=== PATIENT | female | born 1940 | race Caucasian/White ===

== ENCOUNTER 2020-11-28 09:05 | Outpatient (REF) | payer MEDICARE, MEDICAID, SELFPAY ==
[2020-11-28 11:47] LABS: Hematocrit 41.9 % (37-47); Hemoglobin 13.3 g/dl (12.0-16.0)
[2020-11-28 11:48] LABS: Anion Gap 12 (12-20); Blood Urea Nitrogen 16 mg/dL (9-16); Calcium 8.3 mg/dL (8.4-10.2); Carbon Dioxide 27 mmol/L (22-29); Chloride 106 mmol/L (96-108); Cholesterol 154 mg/dL; Estimated Glomerular Filt Rate > 60; Glucose Fasting 89 mg/dL (60-99); HDL Cholesterol 50 mg/dL; LDL Cholesterol Calculated 82 mg/dl; Potassium 4.3 mmol/l (3.3-5.1); Sodium 141 mmol/L (135-145); Triglycerides 113 mg/dL
[2020-11-28 12:10] LABS: TSH reflex Free T4 0.97 mIU/mL (0.32-4.0)
== END 2020-11-28 09:06 | disposition home or self-care (01) ==
LOC: HO.HMGCLDS 09:05
PROVIDERS: PCP Internal Medicine; Visit Provider Internal Medicine
DX: I48.92 Unspecified atrial flutter (principal); E78.9 Disorder of lipoprotein metabolism, unspecified; E03.8 Other specified hypothyroidism
CPT/HCPCS: 36415; 80048; 80061; 84443; 85014; 85018

== ENCOUNTER 2021-05-16 08:21 | Outpatient (REF) | payer MEDICARE, MEDICAID, SELFPAY ==
--- NOTE | ~2021-05-16 | MM_ITS ---
EXAMINATION: MM SCREENING DIGITAL BREAST TOMOSYNTHESIS, BILATERAL CLINICAL INFORMATION: Screening. Asymptomatic. The lifetime risk of breast cancer based on the Tyrer-Cuzick Model is 2%. COMPARISON: Mammography: 05/10/2020, 02/11/2019, 01/20/2017 TECHNIQUE: Digital breast tomosynthesis is performed in both the craniocaudal and mediolateral oblique views along with computer-aided detection (CAD). Synthesized 2D images are generated from the tomosynthesis. Additional exaggerated left CC view is provided. FINDINGS: There are scattered areas of fibroglandular density (ACR BI-RADS breast composition Category b). Breast tissue composition borders on heterogeneously dense. There is fine fibronodular parenchymal pattern similar to prior studies. No developing density or interval mass or architectural abnormality. No abnormal calcifications. The axilla and skin contours are unremarkable. MM/MM tomosynthesis screening BI IMPRESSION: No mammographic evidence of malignancy. ASSESSMENT: BI-RADS 1: Negative RECOMMENDATION: Routine annual mammography screening. This patient's information was entered into a reminder system with a target due date for their next mammogram.
== END 2021-05-16 08:22 | disposition home or self-care (01) ==
LOC: HO.MAMMO 08:21
PROVIDERS: PCP Internal Medicine; Visit Provider Internal Medicine
DX: Z12.31 Encounter for screening mammogram for malignant neoplasm of breast (principal)
CPT/HCPCS: 77063; 77067

== ENCOUNTER 2021-06-10 08:00 | Outpatient (REF) | payer MEDICARE, SELFPAY ==
[2021-06-10 12:12] LABS: Alanine Aminotransferase 11 U/L (0-31); Albumin Level 3.7 g/dL (3.5-5.0); Alkaline Phosphatase 99 U/L (39-117); Anion Gap 8 (12-20); Aspartate Amino Transferase 19 U/L (5-31); Bilirubin Total 0.5 mg/dL (0.0-1.0); Blood Urea Nitrogen 17 mg/dL (9-16); Calcium 8.8 mg/dL (8.4-10.2); Carbon Dioxide 28 mmol/L (22-29); Chloride 109 mmol/L (96-108); Cholesterol 149 mg/dL; Estimated Glomerular Filt Rate > 60; Glucose Fasting 94 mg/dL (60-99); HDL Cholesterol 53 mg/dL; LDL Cholesterol Calculated 81 mg/dl; Potassium 4.4 mmol/L (3.3-5.1); Sodium 141 mmol/L (135-145); Total Protein 6.8 g/dL (6.5-8.0); Triglycerides 77 mg/dL
[2021-06-10 12:16] LABS: TSH reflex Free T4 0.75 uIU/mL (0.32-4.0)
== END 2021-06-10 08:01 | disposition home or self-care (01) ==
LOC: HO.HMGCLDS 08:00
PROVIDERS: PCP Internal Medicine; Visit Provider Internal Medicine
DX: Z00.01 Encounter for general adult medical examination with abnormal findings (principal); E78.9 Disorder of lipoprotein metabolism, unspecified; E03.8 Other specified hypothyroidism
CPT/HCPCS: 36415; 80053; 80061; 84443

== ENCOUNTER 2021-12-10 08:36 | Outpatient (REF) | payer MEDICARE, SELFPAY ==
[2021-12-10 11:26] LABS: MANUAL DIFF FLAG NO
[2021-12-10 11:31] LABS: Basophils Percent Auto 0.3 % (0-2); Eosinophils Absolute Auto 0.2 X10*3/uL (0.0-0.4); Eosinophils Percent Auto 2.8 % (0-4); Hematocrit 41.3 % (37.0-47.0); Imm Gran Abs Auto 0.02 X10*3/uL (0.00-0.03); Imm Gran Pct Auto 0.3 % (0.0-0.4); Lymphocytes Absolute Auto 1.5 X10*3/uL (1.2-4.9); Lymphocytes Percent Auto 24.5 % (20-40); Mean Corpuscular HGB Conc 31.5 g/dl (31.0-35.0); Mean Corpuscular Hemoglobin 30.7 pg (27.0-33.0); Mean Corpuscular Volume 97.6 fL (80.0-98.0); Mean Platelet Volume 10.8 fL (9.4-12.3); Monocytes Absolute Auto 0.7 X10*3/uL (0.1-1.2); Monocytes Percent Auto 10.9 % (2-11); Neutrophils Absolute Auto 3.7 x10*3/uL (2.0-8.3); Neutrophils Percent Auto 61.2 % (45-73); Platelet Count 173 X10*3/uL (160-400); Red Blood Count 4.23 X10*6/uL (4.20-5.50); Red Cell Distribution Width 13.2 % (11.0-16.0)
[2021-12-10 12:15] LABS: TSH reflex Free T4 1.07 uIU/mL (0.32-4.0)
[2021-12-10 12:18] LABS: Alanine Aminotransferase 11 U/L (0-31); Albumin Level 3.7 g/dL (3.5-5.0); Alkaline Phosphatase 101 U/L (39-117); Anion Gap 8 (12-20); Aspartate Amino Transferase 17 U/L (5-31); Bilirubin Total 0.6 mg/dL (0.0-1.0); Blood Urea Nitrogen 18 mg/dL (9-16); Calcium 8.9 mg/dL (8.4-10.2); Carbon Dioxide 30 mmol/L (22-29); Chloride 108 mmol/L (96-108); Estimated Glomerular Filt Rate 58; Glucose Random 92 mg/dL (60-115); Potassium 4.1 mmol/L (3.3-5.1); Sodium 142 mmol/L (135-145); Total Protein 7.1 g/dL (6.5-8.0)
[2021-12-10 12:36] LABS: Vitamin B12 362 pg/mL (200-900)
== END 2021-12-10 08:37 | disposition home or self-care (01) ==
LOC: HO.HMGCLDS 08:36
PROVIDERS: PCP Internal Medicine; Visit Provider Internal Medicine
DX: E03.8 Other specified hypothyroidism (principal); I49.5 Sick sinus syndrome; E78.9 Disorder of lipoprotein metabolism, unspecified; J44.9 Chronic obstructive pulmonary disease, unspecified; E66.09 Other obesity due to excess calories
CPT/HCPCS: 36415; 80053; 82607; 84443; 85025

== ENCOUNTER → 2021-12-17 09:53 | Outpatient (BNVA) | payer MEDICARE, SELFPAY | PROVIDERS: PCP Internal Medicine; Referring Provider Internal Medicine; Visit Provider Internal Medicine | DX: I48.92 Unspecified atrial flutter (principal); I31.3 Pericardial effusion (noninflammatory); R60.0 Localized edema | CPT/HCPCS: 93005; 99212 ==

== ENCOUNTER 2022-05-19 11:28 | Outpatient (REF) | payer MEDICARE, SELFPAY ==
--- NOTE | ~2022-05-19 | MM_ITS ---
EXAMINATION: MM SCREENING DIGITAL BREAST TOMOSYNTHESIS, BILATERAL CLINICAL INFORMATION: Screening. Asymptomatic. The lifetime risk of breast cancer based on the Tyrer-Cuzick Model is 2%. COMPARISON: Mammography: 05/16/2021, 05/10/2020, 02/11/2019 TECHNIQUE: Digital breast tomosynthesis is performed in both the craniocaudal and mediolateral oblique views along with computer-aided detection (CAD). Synthesized 2D images are generated from the tomosynthesis. FINDINGS: There are scattered areas of fibroglandular density (ACR BI-RADS breast composition Category b). Breast tissue borders on heterogeneously dense. There is fine fibronodular parenchymal pattern similar to prior exams. There is no significant mass or interval developing density or abnormal calcifications. The axilla and skin contours are unremarkable. No significant changes. MM/MM tomosynthesis screening BI IMPRESSION: No mammographic evidence of malignancy. ASSESSMENT: BI-RADS 1: Negative RECOMMENDATION: Routine annual mammography screening. This patient's information was entered into a reminder system with a target due date for their next mammogram.
== END 2022-05-19 11:29 | disposition home or self-care (01) ==
LOC: HO.MAMMO 11:28
PROVIDERS: Visit Provider Internal Medicine
DX: Z12.31 Encounter for screening mammogram for malignant neoplasm of breast (principal)
CPT/HCPCS: 77063; 77067

== ENCOUNTER 2022-07-29 07:10 | Outpatient (REF) | payer OTHER, SELFPAY ==
[2022-07-29 12:15] LABS: Alanine Aminotransferase 10 U/L (0-31); Albumin Level 3.5 g/dL (3.5-5.0); Alkaline Phosphatase 100 U/L (39-117); Anion Gap 13 (12-20); Aspartate Amino Transferase 15 U/L (5-31); Bilirubin Total 0.2 mg/dL (0.0-1.0); Blood Urea Nitrogen 18 mg/dL (9-16); Calcium 8.3 mg/dL (8.4-10.2); Carbon Dioxide 27 mmol/L (22-29); Chloride 109 mmol/L (96-108); Estimated Glomerular Filt Rate > 60; Glucose Random 101 mg/dL (60-115); Potassium 4.6 mmol/L (3.3-5.1); Sodium 144 mmol/L (135-145); Total Protein 6.7 g/dL (6.5-8.0)
[2022-07-29 12:17] LABS: TSH reflex Free T4 1.59 uIU/mL (0.32-4.0)
== END 2022-07-29 07:11 | disposition home or self-care (01) ==
LOC: HO.HMGCLDS 07:10
PROVIDERS: PCP Internal Medicine; Visit Provider Internal Medicine
DX: I49.5 Sick sinus syndrome (principal); E78.9 Disorder of lipoprotein metabolism, unspecified; E03.8 Other specified hypothyroidism
CPT/HCPCS: 36415; 80053; 84443

== ENCOUNTER → 2023-01-06 12:38 | Outpatient (BNVA) | payer OTHER, SELFPAY | PROVIDERS: PCP Internal Medicine; Referring Provider Internal Medicine; Visit Provider Internal Medicine | DX: I48.92 Unspecified atrial flutter (principal); R60.0 Localized edema | CPT/HCPCS: 93005; 99212 ==

== ENCOUNTER 2023-01-28 07:43 | Outpatient (REF) | payer OTHER, SELFPAY ==
[2023-01-28 11:53] LABS: Alanine Aminotransferase 8 U/L (0-31); Albumin Level 3.5 g/dL (3.5-5.0); Alkaline Phosphatase 101 U/L (39-117); Anion Gap 13 (12-20); Aspartate Amino Transferase 14 U/L (5-31); Bilirubin Total 0.6 mg/dL (0.0-1.0); Blood Urea Nitrogen 19 mg/dL (9-16); Calcium 8.7 mg/dL (8.4-10.2); Carbon Dioxide 25 mmol/L (22-29); Chloride 110 mmol/L (96-108); Cholesterol 156 mg/dL; Estimated Glomerular Filt Rate 60; Glucose Fasting 92 mg/dL (60-99); HDL Cholesterol 48 mg/dL; LDL Cholesterol Calculated 90 mg/dl; Potassium 4.9 mmol/L (3.3-5.1); Sodium 143 mmol/L (135-145); Total Protein 6.5 g/dL (6.5-8.0); Triglycerides 90 mg/dL
== END 2023-01-28 07:44 | disposition home or self-care (01) ==
LOC: HO.HMGCLDS 07:43
PROVIDERS: PCP Internal Medicine; Visit Provider Internal Medicine
DX: E03.8 Other specified hypothyroidism (principal); E78.9 Disorder of lipoprotein metabolism, unspecified; I49.5 Sick sinus syndrome
CPT/HCPCS: 36415; 80053; 80061; 84443

== ENCOUNTER 2023-05-27 13:30 | Outpatient (REF) | payer OTHER, SELFPAY ==
--- NOTE | ~2023-05-27 | MM_ITS ---
EXAMINATION: MM SCREENING DIGITAL BREAST TOMOSYNTHESIS, BILATERAL CLINICAL INFORMATION: Screening. Asymptomatic. The lifetime risk of breast cancer based on the Tyrer-Cuzick Model is 1.2%. COMPARISON: Mammography: This study is compared with prior exams dating back to 2019. TECHNIQUE: Digital breast tomosynthesis is performed in both the craniocaudal and mediolateral oblique views along with computer-aided detection (CAD). Synthesized 2D images are generated from the tomosynthesis. FINDINGS: There are scattered areas of fibroglandular density (ACR BI-RADS breast composition Category b). There are no significant masses, abnormal calcifications, or other abnormalities. MM/MM tomosynthesis screening BI IMPRESSION: No mammographic evidence of malignancy. ASSESSMENT: BI-RADS BI-RADS 1 - Negative RECOMMENDATION: Routine annual mammography screening. 1 year F/U This examination should not preclude the clinical evaluation of a suspicious palpable abnormality. This patient's information was entered into a reminder system with a target due date for their next mammogram.
== END 2023-05-27 13:31 | disposition home or self-care (01) ==
LOC: HO.MAMMO 13:30
PROVIDERS: PCP Internal Medicine; Visit Provider Internal Medicine
DX: Z12.31 Encounter for screening mammogram for malignant neoplasm of breast (principal)
CPT/HCPCS: 77063; 77067

== ENCOUNTER → 2023-05-27 13:45 | Outpatient (BNV) | payer OTHER, SELFPAY | PROVIDERS: PCP Internal Medicine; Visit Provider Radiology Diagnostic Radiology | DX: Z12.31 Encounter for screening mammogram for malignant neoplasm of breast (principal) | CPT/HCPCS: 77063; 77067 ==

== ENCOUNTER 2023-10-30 07:58 | Outpatient (REF) | payer OTHER, SELFPAY ==
[2023-10-30 12:22] LABS: MANUAL DIFF FLAG NO
[2023-10-30 12:32] LABS: Basophils Percent Auto 0.5 % (0-2); Eosinophils Absolute Auto 0.2 X10*3/uL (0.0-0.4); Eosinophils Percent Auto 3.5 % (0-4); Hematocrit 28.3 % (37.0-47.0); Imm Gran Abs Auto 0.02 X10*3/uL (0.00-0.03); Imm Gran Pct Auto 0.3 % (0.0-0.4); Lymphocytes Absolute Auto 1.5 X10*3/uL (1.2-4.9); Lymphocytes Percent Auto 23.4 % (20-40); Mean Corpuscular HGB Conc 28.3 g/dl (31.0-35.0); Mean Corpuscular Hemoglobin 22.7 pg (27.0-33.0); Mean Corpuscular Volume 80.4 fL (80.0-98.0); Mean Platelet Volume 10.8 fL (9.4-12.3); Monocytes Absolute Auto 0.7 X10*3/uL (0.1-1.2); Neutrophils Absolute Auto 3.8 x10*3/uL (2.0-8.3); Neutrophils Percent Auto 61.3 % (45-73); Platelet Count 213 X10*3/uL (160-400); Red Blood Count 3.52 X10*6/uL (4.20-5.50); Red Cell Distribution Width 20.6 % (11.0-16.0); White Blood Count 6.2 X10*3/uL (4.8-10.8)
[2023-10-30 14:58] LABS: Alanine Aminotransferase 12 U/L (0-31); Albumin Level 3.5 g/dL (3.5-5.0); Alkaline Phosphatase 94 U/L (39-117); Anion Gap 13 (12-20); Aspartate Amino Transferase 19 U/L (5-31); Bilirubin Total 0.3 mg/dL (0.0-1.0); Blood Urea Nitrogen 19 mg/dL (9-16); Calcium 8.9 mg/dL (8.4-10.2); Carbon Dioxide 24 mmol/L (22-29); Chloride 112 mmol/L (96-108); Cholesterol 150 mg/dL (<200); Estimated Glomerular Filt Rate > 60; Glucose Fasting 99 mg/dL (60-99); HDL Cholesterol 52 mg/dL (>40); LDL Cholesterol Calculated 83 mg/dL (<100); Potassium 4.6 mmol/L (3.3-5.1); Sodium 144 mmol/L (135-145); TSH reflex Free T4 1.53 uIU/mL (0.32-4.0); Total Protein 7.2 g/dL (6.5-8.0); Triglycerides 79 mg/dL (<150)
[2023-11-02 18:39] LABS: Lyme Abs Screen <0.90 index
== END 2023-10-30 07:59 | disposition home or self-care (01) ==
LOC: HO.HMGCLDS 07:58
PROVIDERS: PCP Internal Medicine; Visit Provider Internal Medicine
DX: E03.8 Other specified hypothyroidism (principal); E78.9 Disorder of lipoprotein metabolism, unspecified; I49.5 Sick sinus syndrome; E66.09 Other obesity due to excess calories; T14.8XXA Other injury of unspecified body region, initial encounter; W57.XXXA Bitten or stung by nonvenomous insect and other nonvenomous arthropods, initial encounter; Y93.9 Activity, unspecified; Y92.9 Unspecified place or not applicable; Y99.9 Unspecified external cause status
CPT/HCPCS: 36415; 80053; 80061; 84443; 85025; 86617; 86618

== ENCOUNTER 2023-11-03 08:33 | Outpatient (AMB) | payer OTHER, SELFPAY ==
[2023-11-03 08:36] VITALS: BP 128/60; PULSE 65; O2SAT 100; BMI 30.3
--- NOTE | 2023-11-03 08:36 | MHC.PC.OV ---
Vital Signs 11/03/23 08:36 Height 5 ft 6 in Weight 188 lb BMI 30.3 BP 128/60 Blood Pressure Location Rt brachial Position Sitting Pulse 65 Pulse Source Pulse Oximeter Pulse Oximetry (%) 100 Oxygen Delivery Method Room Air Intake Visit Reasons: 6m follow up Allergies latex [LATEX] Allergy (Unknown, Verified 11/03/23 08:39) UNKNOWN Dajhbst-EEI-WsC Reductase Inhibitor [LQPSMKO-YMZ-VEF REDUCTASE INHIBITOR] Allergy (Unknown, Verified 11/03/23 08:39) ? liver issue Sulfa (Sulfonamide Antibiotics) [SULFA (SULFONAMIDE ANTIBIOTICS)] Allergy (Unknown, Verified 11/03/23 08:39) yeast infections, yeast infection Adhesive bandages Allergy (Unknown, Uncoded 11/03/23 08:39) rash to site Medication List - Last Reconciled 11/03/23 by Melonie Lott MD albuterol sulfate 90 mcg/actuation 2 puffs inhalation Q6H PRN metoprolol tartrate 50 mg PO BID rivaroxaban (Xarelto) 20 mg PO QPM rosuvastatin 10 mg PO DAILY 90 days Synthroid (levothyroxine) 75 mcg PO DAILY 90 days NS Tobacco use date assessed: 11/03/23 Fall risk assessment: No Falls in past year Last assessed Fall Risk: 11/03/23 Dental Screening Dental Screen Date: 11/03/23 Did you have a dental visit in the last 12 months?: Yes Did you have a dental problem in the last 6 months where you did not have access to dental care?: Yes Was dental information given to patient?: Patient has dentist HPI 6m follow up HPI Details Patient is 83-year-old female came in today for her six-month follow-up appointment Patient had labs done recently I see that her hemoglobin has dropped to 8.0 it was 13 last year in November. It seems like an iron deficiency anemia. Patient admits that she gets constipated often at times she also see streak of fresh blood in her stool Colonoscopy was approximately [address] Brewster Patient says that she was told that she does not need anymore colonoscopies. But she will call him to book appointment for evaluation I have placed a referral for to see Hematology as well Meanwhile patient is to start iron supplement along with laxative. Labs needs to be repeated again in 2 weeks. She does complain of feeling fatigued and tired If she exerts herself then she also get shortness of breath. Her lungs are clear on auscultation heart is regular She does have mild chronic edema left ankle which started after the knee surgery. BMI is also elevated patient is struggling with weight PFSH Medical History Pericardial effusion Surgical History History of parathyroid surgery Mammogram normal History of total knee replacement (TKR) History of basal cell carcinoma excision History of colonoscopy Parathyroid adenoma Family History Father Stroke Mother CHF (congestive heart failure) Stroke Brother Colon cancer Brother Brain tumor Social History Housing: Apartment Patient Tobacco Use Status: Never used Tobacco e-Cigarette/Vaping Use: Never Used Current occupational status: retired Cognitive needs: No Hearing needs: No Vision needs: Yes Questionnaire Thrive Questionnaire Date Thrive assessed: 05/06/23 SUSAN-7 AMB Questionnaire SUSAN-7 Date SUSAN - 7 assessed: 05/06/23 Source: Developed by Drs. Gopi Castillo, Susana Calero, Rigoberto Jones and colleagues, with an educational gini from [employer]. Review of Systems Const Denies chills and Denies fever(s) ENT Denies epistaxis and Denies nasal discharge Card Denies chest pain Resp Denies chest congestion, Denies cough and Denies hemoptysis GI Denies diarrhea and Denies nausea Skin/Breast Denies rash Neuro Reports no additional complaints Psych Reports no additional complaints Endo Reports no additional complaints Physical exam (Primary Care) Vital Signs: Last Vital Signs Pulse 65 11/03/23 08:36 BP 128/60 11/03/23 08:36 Pulse Ox 100 11/03/23 08:36 Oxygen Delivery Method Room Air 11/03/23 08:36 BMI result Body Mass Index 30.3 Tobacco/Smoking Status: Tobacco use Status Tobacco use date assessed 11/03/23 11/03/23 08:40 Patient Tobacco Use Status Never used Tobacco 11/03/23 08:38 e-Cigarette/Vaping Use Never Used 11/03/23 08:38 Thrive Assessment: Date of Thrive Assessment Date Thrive assessed 05/06/23 11/03/23 08:38 Const General: cooperative, comfortable and no acute distress Orientation/consciousness: patient oriented x3 HENMT Head: Yes normocephalic Eyes General: appearance normal, both eyes and all related structures Neck Neck: Yes supple Resp Effort & Inspection: normal respiratory effort, no cough and no stridor Cardio Rhythm: regular rhythm Heart sounds: S1 normal heart sound present and S2 normal heart sound present Skin General skin exam: turgor normal Neuro General: patient oriented x3, tone normal and moves all extremities Results Reviewed Results Reviewed: Laboratory Tests 03/21/20 06/10/21 06/10/21 11:52 08:06 08:06 WBC RBC Hgb Hct Sodium Potassium Chloride Carbon Dioxide Bicarbonate 22 BUN Creatinine Estimated GFR Fasting Glucose 94 AST ALT LDL Cholesterol, Calc 81 Vitamin B12 TSH 12/10/21 12/10/21 12/10/21 08:45 08:45 08:45 WBC 6.0 RBC 4.23 Hgb 13.0 Hct 41.3 Sodium 142 Potassium 4.1 Chloride 108 Carbon Dioxide 30 H Bicarbonate BUN 18 H Creatinine 0.93 Estimated GFR Fasting Glucose AST 17 ALT 11 LDL Cholesterol, Calc Vitamin B12 TSH 12/10/21 10/30/23 08:45 08:03 WBC RBC 3.52 L Hgb 8.0 L D Hct 28.3 L D Sodium Potassium Chloride Carbon Dioxide Bicarbonate BUN Creatinine Estimated GFR 58 Fasting Glucose AST ALT LDL Cholesterol, Calc Vitamin B12 362 TSH 1.07 Assessment and Plan Assessment & Plan (1) Anemia: Code(s): D64.9 - Anemia, unspecified Qualifiers: Anemia type: iron deficiency Iron deficiency anemia type: chronic blood loss Qualified Code(s): D50.0 - Iron deficiency anemia secondary to blood loss (chronic) (2) Leg edema: Code(s): R60.0 - Localized edema (3) COPD, mild: Code(s): J44.9 - Chronic obstructive pulmonary disease, unspecified (4) Angelo-tachy syndrome: Code(s): I49.5 - Sick sinus syndrome (5) Lipid disorder: Code(s): E78.9 - Disorder of lipoprotein metabolism, unspecified (6) Other specified acquired hypothyroidism: Code(s): E03.8 - Other specified hypothyroidism (7) Obesity due to excess calories: Code(s): E66.09 - Other obesity due to excess calories Qualifiers: Obesity classification: adult class 1 (BMI 30 - 34.9) Serious obesity comorbidity presence: with serious comorbidity Body mass index: BMI 30.0-30.9 Qualified Code(s): E66.09 - Other obesity due to excess calories; Z68.30 - Body mass index [BMI] 30.0-30.9, adult Plan Patient is 83-year-old female came in today for her six-month follow-up appointment Patient had labs done recently I see that her hemoglobin has dropped to 8.0 it was 13 last year in November. It seems like an iron deficiency anemia. Patient admits that she gets constipated often at times she also see streak of fresh blood in her stool Colonoscopy was approximately [address] Brewster Patient says that she was told that she does not need anymore colonoscopies. But she will call him to book appointment for evaluation I have placed a referral for to see Hematology as well Meanwhile patient is to start iron supplement along with laxative. Labs needs to be repeated again in 2 weeks. She does complain of feeling fatigued and tired If she exerts herself then she also get shortness of breath. Her lungs are clear on auscultation heart is regular She does have mild chronic edema left ankle which started after the knee surgery. BMI is also elevated patient is struggling with weight History of angelo-tachy syndrome, patient is established with Cardiology Lipid disorder: Continue statin She does mild COPD which is stable at this time Orders: Orders Hemoglobin Today D64.9 - Anemia, unspecified Vitamin B12 Today D64.9 - Anemia, unspecified Folate Today D64.9 - Anemia, unspecified Ferritin Today D64.9 - Anemia, unspecified Hematocrit Today D64.9 - Anemia, unspecified IRON PROFILE Today D64.9 - Anemia, unspecified Medications: New sennosides-docusate sodium 8.6-50 mg (Senokot-S) 1 tab-cap PO BEDTIME 90 days 90 tabs 0RF constipation K59.03 - Drug induced constipation, T40.2X5A - Adverse effect of other opioids, initial encounter ferrous sulfate 324 mg PO BID 90 days 180 tabs 0RF Coding Level of Care Code Est Pt Level 4 (86053) Diagnoses Iron deficiency anemia due to chronic blood loss D50.0 Anemia type: iron deficiency Iron deficiency anemia type: chronic blood loss Leg edema R60.0 COPD, mild J44.9 Angelo-tachy syndrome I49.5 Lipid disorder E78.9 Other specified acquired hypothyroidism E03.8 Class 1 obesity due to excess calories with serious comorbidity and body mass index (BMI) of 30.0 to 30.9 in adult E66.09; Z68.30 Obesity classification: adult class 1 (BMI 30 - 34.9) Serious obesity comorbidity presence: with serious comorbidity Body mass index: BMI 30.0-30.9
== END 2023-11-03 12:28 | disposition home or self-care (01) ==
PROVIDERS: PCP Internal Medicine; Visit Provider Internal Medicine
DX: D50.0 Iron deficiency anemia secondary to blood loss (chronic) (principal); R60.0 Localized edema; J44.9 Chronic obstructive pulmonary disease, unspecified; I49.5 Sick sinus syndrome; E78.9 Disorder of lipoprotein metabolism, unspecified; E03.8 Other specified hypothyroidism; E66.09 Other obesity due to excess calories; Z68.30 Body mass index [BMI] 30.0-30.9, adult
CPT/HCPCS: 99214

== ENCOUNTER 2023-12-03 07:58 | Outpatient (REF) | payer OTHER, SELFPAY ==
[2023-12-03 11:34] LABS: MANUAL DIFF FLAG NO
[2023-12-03 11:51] LABS: Basophils Percent Auto 0.5 % (0-2); Eosinophils Absolute Auto 0.2 X10*3/uL (0.0-0.4); Eosinophils Percent Auto 3.6 % (0-4); Hematocrit 36.7 % (37.0-47.0); Hemoglobin 10.8 g/dl (12.0-16.0); Imm Gran Abs Auto 0.03 X10*3/uL (0.00-0.03); Imm Gran Pct Auto 0.5 % (0.0-0.4); Lymphocytes Absolute Auto 1.2 X10*3/uL (1.2-4.9); Lymphocytes Percent Auto 18.8 % (20-40); Mean Corpuscular HGB Conc 29.4 g/dl (31.0-35.0); Mean Corpuscular Hemoglobin 25.3 pg (27.0-33.0); Mean Corpuscular Volume 85.9 fL (80.0-98.0); Mean Platelet Volume 10.5 fL (9.4-12.3); Monocytes Absolute Auto 0.8 X10*3/uL (0.1-1.2); Monocytes Percent Auto 11.9 % (2-11); Neutrophils Absolute Auto 4.3 x10*3/uL (2.0-8.3); Neutrophils Percent Auto 64.7 % (45-73); Platelet Count 214 X10*3/uL (160-400); Red Blood Count 4.27 X10*6/uL (4.20-5.50); Red Cell Distribution Width 25.8 % (11.0-16.0); White Blood Count 6.6 X10*3/uL (4.8-10.8)
[2023-12-03 12:20] LABS: Alanine Aminotransferase 12 U/L (0-31); Albumin Level 3.7 g/dL (3.5-5.0); Alkaline Phosphatase 85 U/L (39-117); Anion Gap 9 (12-20); Aspartate Amino Transferase 17 U/L (5-31); Bilirubin Total 0.4 mg/dL (0.0-1.0); Blood Urea Nitrogen 14 mg/dL (9-16); Calcium 9.2 mg/dL (8.4-10.2); Carbon Dioxide 27 mmol/L (22-29); Chloride 109 mmol/L (96-108); Cholesterol 150 mg/dL (<200); Estimated Glomerular Filt Rate > 60; Ferritin 28 ng/mL (10-250); Glucose Fasting 92 mg/dL (60-99); HDL Cholesterol 56 mg/dL (>40); Iron 76 mcg/dL (30-160); LDL Cholesterol Calculated 75 mg/dL (<100); Percent Iron Saturation 25 % (15-50); Potassium 4.3 mmol/L (3.3-5.1); Sodium 141 mmol/L (135-145); TSH reflex Free T4 1.21 uIU/mL (0.32-4.0); Total Iron Binding Capacity 299 mcg/dL (228-428); Total Protein 7.4 g/dL (6.5-8.0); Triglycerides 95 mg/dL (<150); Unsaturated Iron Binding 223 ug/dL
[2023-12-03 12:29] LABS: Folate 11.1 ng/mL (> or = 4.0); Vitamin B12 324 pg/mL (200-900)
== END 2023-12-03 07:59 | disposition home or self-care (01) ==
LOC: HO.HMGCLDS 07:58
PROVIDERS: PCP Internal Medicine; Visit Provider Internal Medicine
DX: Z00.01 Encounter for general adult medical examination with abnormal findings (principal); E03.8 Other specified hypothyroidism; E78.9 Disorder of lipoprotein metabolism, unspecified; I49.5 Sick sinus syndrome; E66.09 Other obesity due to excess calories; D64.9 Anemia, unspecified
CPT/HCPCS: 36415; 80053; 80061; 82607; 82728; 82746; 83540; 84443; 85025

== ENCOUNTER 2023-12-17 07:55 | Outpatient (AMB) | payer OTHER, SELFPAY ==
--- NOTE | 2023-12-17 08:09 | A.OFFPC_ITS ---
Intake Visit Reasons: Discuss bloodwork~[phone] Allergies latex [LATEX] Allergy (Unknown, Verified 12/17/23 08:10) UNKNOWN Lhxpbvo-GZW-XkR Reductase Inhibitor [SYMYEHV-HNL-SWM REDUCTASE INHIBITOR] Allergy (Unknown, Verified 12/17/23 08:10) ? liver issue Sulfa (Sulfonamide Antibiotics) [SULFA (SULFONAMIDE ANTIBIOTICS)] Allergy (Unknown, Verified 12/17/23 08:10) yeast infections, yeast infection Adhesive bandages Allergy (Unknown, Uncoded 12/17/23 08:10) rash to site Medication List - Last Reconciled 12/17/23 by Melonie Lott MD ferrous sulfate 324 mg PO BID 90 days metoprolol tartrate 50 mg PO BID 90 days rivaroxaban (Xarelto) 20 mg PO QPM rosuvastatin 10 mg PO DAILY 90 days sennosides-docusate sodium 8.6-50 mg (Senokot-S) 1 tab-cap PO BEDTIME 90 days Synthroid (levothyroxine) 75 mcg PO DAILY 90 days NS Tobacco use date assessed: 12/17/23 Fall risk assessment: No Falls in past year Last assessed Fall Risk: 12/17/23 Dental Screening Dental Screen Date: 12/17/23 Did you have a dental visit in the last 12 months?: Yes Did you have a dental problem in the last 6 months where you did not have access to dental care?: Yes Was dental information given to patient?: Patient has dentist HPI Discuss bloodwork~[phone] HPI Details This is a telemedicine conference to go over patient's labs Patient had labs done it of October that was last month and her hemoglobin came back at 8.0 Her baseline hemoglobin is 13 or [address] referral for her to see Hematology in started her on iron supplement 2 times a day We repeated labs again her hemoglobin has improved to 10.8 Patient is asking if she still need to see the Hematology She has no active bleeding from anywhere At this time if patient is not interested in seeing him a tolerating we can hold that consultation She is to continue with iron supplement 2 times a day and repeat labs again in 2 months and then we will decide. For now she is tolerating iron without any side effects PFSH Medical History Pericardial effusion Surgical History History of parathyroid surgery Mammogram normal History of total knee replacement (TKR) History of basal cell carcinoma excision History of colonoscopy Parathyroid adenoma Family History Father Stroke Mother CHF (congestive heart failure) Stroke Brother Colon cancer Brother Brain tumor Social History Housing: Apartment Patient Tobacco Use Status: Never used Tobacco e-Cigarette/Vaping Use: Never Used Current occupational status: retired Cognitive needs: No Hearing needs: Yes Vision needs: Yes Questionnaire PHQ-9 Over the last 2 weeks, how often have you been bothered by any of the following problems? 1. Little interest or pleasure in doing things: not at all 2. Feeling down, depressed, or hopeless: not at all 3. Trouble falling or staying asleep, or sleeping too much: not at all 4. Feeling tired or having little energy: not at all 5. Poor appetite or overeating: not at all 6. Feeling bad about yourself - or that you are a failure or have let yourself or your family down: not at all 7. Trouble concentrating on things, such as reading the newspaper or watching television: not at all 8. Moving or speaking so slowly that other people could have noticed. Or the opposite - being so fidgety or restless that you have been moving around a lot more than usual: not at all 9. Thoughts that you would be better off or of hurting yourself in some way: not at all Total score: 0 Depression Screening Interpretation: Negative Depression Screening Done: Yes 56947 - PHQ-9 Billing: Yes Source: Developed by Drs. Gopi Castillo, Susana Calero, Rigoberto Jones and colleagues, with an educational gini from [employer]. Thrive Questionnaire Date Thrive assessed: 12/17/23 I am a: Patient What is your living situation today?: I have a steady place to live Within the past 12 months, did the food you bought not last and you didn't have the money to get more?: Never true Within the past 12 months, did you worry whether your food would run out before you got money to buy more?: Never true Do you have trouble paying for medicines?: No Do you have trouble getting transportation to medical appointments?: No Do you have trouble paying your heating and electricity bill?: No Do you have trouble taking care of your child, family member or friend?: No Do you have trouble with day-to-day activities such as bathing, preparing meals, shopping, managing finances, etc.?: No Are you currently unemployed and looking for a job?: No Are you interested in more education?: No Please select the resources that you would like help with: None Currently or been in a relationship where the following occur: no concerns reported THRIVE Score: 0 AUDIT C Alcohol Use Questionnaire (AUDIT-C) 1. How often do you have a drink containing alcohol?: Never Total Score: 0 Score Reviewed/Action Taken: No SUSAN-7 AMB Questionnaire SUSAN-7 Date SUSAN - 7 assessed: 12/17/23 Feeling nervous, anxious, or on edge: 1 = Several days Not being able to stop or control worryin = Several days Worrying too much about different things: 0 = Not at all Trouble relaxin = Not at all Being so restless that it is hard to sit still: 0 = Not at all Becoming easily annoyed or irritable: 0 = Not at all Feeling afraid as if something awful might happen: 0 = Not at all Total SUSAN-7 score (0-4 normal; 5-9 mild; 10-14 moderate; 15-21 severe): 2 Source: Developed by Drs. Gopi Castillo, Susana Calero, Rigoberto Jones and colleagues, with an educational gini from [employer]. SUSAN-7 Assessment Billing SUSAN-7 Assessment Tool: SUSAN-7 Assessment 71850 Review of Systems Const Denies chills and Denies fever(s) ENT Denies epistaxis and Denies nasal discharge Card Denies chest pain Resp Denies chest congestion, Denies cough and Denies hemoptysis GI Denies diarrhea and Denies nausea Skin/Breast Denies rash Neuro Reports no additional complaints Psych Reports no additional complaints Endo Reports no additional complaints Physical exam (Primary Care) Tobacco/Smoking Status: Tobacco use Status Tobacco use date assessed 12/17/23 12/17/23 08:15 Patient Tobacco Use Status Never used Tobacco 12/17/23 08:15 e-Cigarette/Vaping Use Never Used 12/17/23 08:15 PHQ-9: PHQ-9 Score PHQ-9: Total score 0 12/17/23 08:15 Depression Screening Interpretation: Negative Thrive Assessment: Date of Thrive Assessment Date Thrive assessed 12/17/23 12/17/23 08:15 Currently or been in a relationship where the following occur: no concerns reported Telehealth Telehealth Location of provider rendering services: practice address Location of patient: address on file Patient Identification confirmed using: Name, : Yes Telehealth method: voice only Patient verbally consented to treatment: Yes Patient verbally consented to billing insurance company: Yes Patient informed of any privacy concerns related to visit: Yes Minutes spent on Phone/Video with Pt.: 14 Assessment and Plan Assessment & Plan (1) Iron deficiency anemia: Code(s): D50.9 - Iron deficiency anemia, unspecified Qualifiers: Iron deficiency anemia type: unspecified iron deficiency Qualified Code(s): D50.9 - Iron deficiency anemia, unspecified Plan This is a telemedicine conference to go over patient's labs Patient had labs done it of October that was last month and her hemoglobin came back at 8.0 Her baseline hemoglobin is 13 or [address] referral for her to see Hematology in started her on iron supplement 2 times a day We repeated labs again her hemoglobin has improved to 10.8 Patient is asking if she still need to see the Hematology She has no active bleeding from anywhere At this time if patient is not interested in seeing him a tolerating we can hold that consultation She is to continue with iron supplement 2 times a day and repeat labs again in 2 months and then we will decide. For now she is tolerating iron without any side effects Orders: Orders Ferritin 2 Months D50.9 - Iron deficiency anemia, unspecified Complete Blood Count Auto Diff 2 Months D50.9 - Iron deficiency anemia, unspecified Coding Level of Care Code Tele Est Pt Level 3 (05408) Diagnoses Iron deficiency anemia, unspecified iron deficiency anemia type D50.9 Iron deficiency anemia type: unspecified iron deficiency Additional Codes SUSAN-7 Assessment Billing - SUSAN-7 Assessment Tool: SUSAN-7 Assessment [id number] ([id number])
== END 2023-12-17 11:50 | disposition home or self-care (01) ==
PROVIDERS: PCP Internal Medicine; Visit Provider Internal Medicine
DX: D50.9 Iron deficiency anemia, unspecified (principal)
CPT/HCPCS: G2252

== ENCOUNTER → 2023-12-28 09:45 | Outpatient (REF) | payer OTHER, SELFPAY ==
--- NOTE | 2023-12-28 09:54 | CA_ITS ---
Transthoracic Echocardiogram Patient (Last, First, Middle): Kimmy Lynch M Gender: Female Date of : 1940 Age: 83 Procedure Date: 12/28/2023 Procedure Type: Transthoracic Echocardiogram Location: OP Height: 167.64 cm Weight: 83.92 kg BSA: 1.93 m2 Heart Rate: bpm BP: 110 / 70 mmHg Integrated Circuit Fab[employer]ator: BHAVIN Referring MD: Darrius Sanches MD Symptoms: I48.92 - Unspecified atrial flutter Study Quality: Adequate ECG Rhythm: Sinus Conclusions: - The left ventricular systolic function is normal. The calculated ejection fraction is 61% by biplane method. - No obvious valvular pathology seen on this study. - Aortic valve sclerosis but no significant stenosis. Findings Left Ventricle Normal left ventricular cavity size. The left ventricular systolic function is normal. The calculated ejection fraction is 61% by biplane method. There is no evidence of regional wall motion abnormalities. Diastolic function is normal for age. There is mild septal asymmetric hypertrophy. Right Ventricle Normal right ventricular cavity size and systolic function. Atria Both atria are normal in size. Aortic Valve There is mild calcification of the aortic valve. Aortic valve sclerosis but no significant stenosis. Trace to mild aortic regurgitation. Mitral Valve The mitral valve appears normal. There is trace mitral valve regurgitation. There is no mitral valve stenosis. Pulmonic Valve The pulmonic valve is likely normal. Tricuspid Valve There is trace tricuspid valve regurgitation. There is no evidence of pulmonary hypertension. Great Vessels The asc aorta is normal in size. Venous The inferior vena cava is normal in size and collapses greater than 50% with inspiration. Pericardium/Pleural There is no evidence of pericardial effusion. Prior Study Comparison No significant change compared to prior study dated: 02/10/2018. Recommendations, Care & Conclusions No obvious valvular pathology seen on this study. Measurements 2D Linear Measurements IVSd: 1.09 0.6-0.9/0.6-1.0 cm LVIDd: 4.47 3.9-5.3/4.2-5.9 cm LVIDd Index: 2.32 2.4-3.2/2.2-3.1 cm/m2 LVIDs: 2.68 2.0-3.6 cm LVPWd: 0.93 0.7-1.1 cm LA Diam: 4.00 2.7-3.8/3.0-4.0 cm LAIDs Index: 2.07 1.5-2.3 cm/m2 LV Mass: 191.67 67-162/88-224 g LV Mass Index: 99.31 43-95/49-115 g/m2 LVOT Diam: 2.00 3.0+(-)1.3 cm 2D Systolic Function EF 4C: 62.30 >55% EF 2C: 61.80 >55% EF BiP: 61.30 >55% Mitral Valve MV Pk E: 0.63 MV PK A: 0.88 MV Decel Time: 283.00 E/A: 0.70 E'Lateral: 8.79 E'Medial: 6.45 E/E' Med: 9.80 E/E' Lat: 7.20 PHT: 83.00 MVA PHT: 2.65 Decel Pepin: 2.42 Aortic Valve AoV Pk Vimal: 1.82 AoV Mn Vimal: 1.27 AoV VTI: 0.49 AoV Pk Grad: 13.00 Aov Mn Grad: 7.00 MARY Cont.VTI: 1.86 LVOT LVOT Pk Vimal: 1.16 LVOT Mn Vimal: 0.73 LVOT VTI: 0.29 LVOT Pk Grad: 5.00 LVOT Mn Grad: 2.00 LVOT Diam: 2.00 LVOT Area: 3.14 Diastolic Function MV Pk E: 0.63 MV Pk A: 0.88 E/A: 0.70 E'Medial: 6.45 E/E' Med: 9.80 E' Laterial: 8.79 E/E' Lat: 7.20 Right Ventricle TAPSE (mm): 23.50 TVS' Vimal: 10.70 Tricuspid Valve TR Pk Vimal: 1.38 TR Pk Grad: 8.00 RA Press: 3.00 RVSP: 11.00 Great Vessels Aorta Sinus of Valsalva: 3.09 2.0-3.[address] Ridge: 2.32 1.7-3.4 cm Ao Asc: 3.50 2.1-3.4 cm Updated in Other Vendor System with Status of Final Darrius Sanches MD electronically signed on 12/28/2023 8:49:04 AM with status of Final
== END ==
LOC: HO.CARD 09:45
PROVIDERS: PCP Internal Medicine; Visit Provider Internal Medicine
DX: I48.92 Unspecified atrial flutter (principal)
CPT/HCPCS: 93306

== ENCOUNTER → 2023-12-28 09:54 | Outpatient (BNV) | payer OTHER, SELFPAY | PROVIDERS: PCP Internal Medicine; Visit Provider Internal Medicine | DX: I35.1 Nonrheumatic aortic (valve) insufficiency (principal) | CPT/HCPCS: 93306 ==

== ENCOUNTER 2024-02-15 08:34 | Outpatient (REF) | payer OTHER, SELFPAY ==
[2024-02-15 11:18] LABS: MANUAL DIFF FLAG NO
[2024-02-15 11:29] LABS: Basophils Percent Auto 0.5 % (0-2); Eosinophils Absolute Auto 0.2 X10*3/uL (0.0-0.4); Eosinophils Percent Auto 2.6 % (0-4); Imm Gran Abs Auto 0.01 X10*3/uL (0.00-0.03); Imm Gran Pct Auto 0.2 % (0.0-0.4); Lymphocytes Absolute Auto 1.2 X10*3/uL (1.2-4.9); Lymphocytes Percent Auto 19.6 % (20-40); Mean Corpuscular HGB Conc 31.7 g/dl (31.0-35.0); Mean Corpuscular Hemoglobin 29.7 pg (27.0-33.0); Mean Corpuscular Volume 93.6 fL (80.0-98.0); Mean Platelet Volume 10.2 fL (9.4-12.3); Monocytes Absolute Auto 0.7 X10*3/uL (0.1-1.2); Monocytes Percent Auto 10.7 % (2-11); Neutrophils Absolute Auto 4.1 x10*3/uL (2.0-8.3); Neutrophils Percent Auto 66.4 % (45-73); Platelet Count 180 X10*3/uL (160-400); Red Blood Count 4.38 X10*6/uL (4.20-5.50); Red Cell Distribution Width 18.1 % (11.0-16.0); White Blood Count 6.2 X10*3/uL (4.8-10.8)
[2024-02-15 13:52] LABS: Ferritin 29 ng/mL (10-250)
== END 2024-02-15 08:35 | disposition home or self-care (01) ==
LOC: HO.HMGCLDS 08:34
PROVIDERS: PCP Internal Medicine; Visit Provider Internal Medicine
DX: D50.9 Iron deficiency anemia, unspecified (principal)
CPT/HCPCS: 36415; 82728; 85025

== ENCOUNTER 2024-02-25 08:46 | Outpatient (AMB) | payer OTHER, SELFPAY ==
--- NOTE | 2024-02-25 10:33 | MHC.PC.OV ---
Intake Visit Reasons: Discuss Recent Labs~ [phone] Allergies latex [LATEX] Allergy (Unknown, Verified 02/25/24 10:51) UNKNOWN Wxnoepy-ILH-OgC Reductase Inhibitor [EDUJMXH-TJA-BCR REDUCTASE INHIBITOR] Allergy (Unknown, Verified 02/25/24 10:51) ? liver issue Sulfa (Sulfonamide Antibiotics) [SULFA (SULFONAMIDE ANTIBIOTICS)] Allergy (Unknown, Verified 02/25/24 10:51) yeast infections, yeast infection Adhesive bandages Allergy (Unknown, Uncoded 12/17/23 08:10) rash to site Medication List - Last Reconciled 02/25/24 by Melonie Lott MD ferrous sulfate 324 mg PO BID 90 days metoprolol tartrate 50 mg PO BID 90 days rivaroxaban (Xarelto) 20 mg PO QPM rosuvastatin 10 mg PO DAILY 90 days sennosides-docusate sodium 8.6-50 mg (Senokot-S) 1 tab-cap PO BEDTIME 90 days Synthroid (levothyroxine) 75 mcg PO DAILY 90 days NS Tobacco use date assessed: 02/25/24 Fall risk assessment: No Falls in past year Last assessed Fall Risk: 02/25/24 Dental Screening Dental Screen Date: 02/25/24 Did you have a dental visit in the last 12 months?: Yes Did you have a dental problem in the last 6 months where you did not have access to dental care?: No Was dental information given to patient?: Patient has dentist HPI Discuss Recent Labs~ [phone] HPI Details Patient is 83-year-old female this is a telemedicine conference to go over labs Patient had iron deficiency anemia, she has been taking iron supplement regularly Recent labs shows normal hemoglobin with ferritin of low normal level Patient is able tolerate iron without any side effects I would recommend to continue iron at least 2 times a week She has physical exam appointment coming up in April I have placed a full set of lab order to be done fasting before the visit Patient have a history of hypothyroidism mild COPD, atrial fibrillation osteoarthritis lipid disorder and obesity She is taking all her medications and tolerating them PFSH Medical History Pericardial effusion Surgical History History of parathyroid surgery Mammogram normal History of total knee replacement (TKR) History of basal cell carcinoma excision History of colonoscopy Parathyroid adenoma Family History Father Stroke Mother CHF (congestive heart failure) Stroke Brother Colon cancer Brother Brain tumor Social History Housing: Apartment Patient Tobacco Use Status: Never used Tobacco e-Cigarette/Vaping Use: Never Used service: No Current occupational status: retired Cognitive needs: No Hearing needs: Yes Vision needs: Yes Questionnaire Thrive Questionnaire Date Thrive assessed: 12/17/23 AUDIT C Alcohol Use Questionnaire (AUDIT-C) 1. How often do you have a drink containing alcohol?: Never 3. How often do you have six or more drinks on one occasion?: Never Total Score: 0 Score Reviewed/Action Taken: Yes SUSAN-7 AMB Questionnaire SUSAN-7 Date SUSAN - 7 assessed: 12/17/23 Source: Developed by Drs. Gopi Castillo, Susana Calero, Rigoberto Jones and colleagues, with an educational gini from [employer]. Review of Systems Const Denies chills and Denies fever(s) ENT Denies epistaxis and Denies nasal discharge Card Denies chest pain Resp Denies chest congestion, Denies cough and Denies hemoptysis GI Denies diarrhea and Denies nausea Skin/Breast Denies rash Neuro Reports no additional complaints Psych Reports no additional complaints Endo Reports no additional complaints Physical exam (Primary Care) Tobacco/Smoking Status: Tobacco use Status Tobacco use date assessed 02/25/24 02/25/24 10:52 Patient Tobacco Use Status Never used Tobacco 02/25/24 10:34 e-Cigarette/Vaping Use Never Used 02/25/24 10:34 Thrive Assessment: Date of Thrive Assessment Date Thrive assessed 12/17/23 02/25/24 10:34 Telehealth Telehealth Location of provider rendering services: practice address Location of patient: address on file Patient Identification confirmed using: Name, : Yes Telehealth method: voice only Patient verbally consented to treatment: Yes Patient verbally consented to billing insurance company: Yes Patient informed of any privacy concerns related to visit: Yes Assessment and Plan Assessment & Plan (1) Iron deficiency anemia: Code(s): D50.9 - Iron deficiency anemia, unspecified Qualifiers: Iron deficiency anemia type: unspecified iron deficiency Qualified Code(s): D50.9 - Iron deficiency anemia, unspecified (2) Paroxysmal atrial flutter: Code(s): I48.92 - Unspecified atrial flutter (3) COPD, mild: Code(s): J44.9 - Chronic obstructive pulmonary disease, unspecified (4) Lipid disorder: Code(s): E78.9 - Disorder of lipoprotein metabolism, unspecified (5) Other specified acquired hypothyroidism: Code(s): E03.8 - Other specified hypothyroidism Plan Patient is 83-year-old female this is a telemedicine conference to go over labs Patient had iron deficiency anemia, she has been taking iron supplement regularly Recent labs shows normal hemoglobin with ferritin of low normal level Patient is able tolerate iron without any side effects I would recommend to continue iron at least 2 times a week She has physical exam appointment coming up in April I have placed a full set of lab order to be done fasting before the visit Patient have a history of hypothyroidism mild COPD, atrial fibrillation osteoarthritis lipid disorder and obesity She is taking all her medications and tolerating them Orders: Orders Complete Blood Count Auto Diff Today D50.9 - Iron deficiency anemia, unspecified, E03.8 - Other specified hypothyroidism, E78.9 - Disorder of lipoprotein metabolism, unspecified, I48.92 - Unspecified atrial flutter, J44.9 - Chronic obstructive pulmonary disease, unspecified Comprehensive [place]. Panel Fast Today D50.9 - Iron deficiency anemia, unspecified, E03.8 - Other specified hypothyroidism, E78.9 - Disorder of lipoprotein metabolism, unspecified, I48.92 - Unspecified atrial flutter, J44.9 - Chronic obstructive pulmonary disease, unspecified IRON PROFILE Today D50.9 - Iron deficiency anemia, unspecified, E03.8 - Other specified hypothyroidism, E78.9 - Disorder of lipoprotein metabolism, unspecified, I48.92 - Unspecified atrial flutter, J44.9 - Chronic obstructive pulmonary disease, unspecified Ferritin Today D50.9 - Iron deficiency anemia, unspecified, E03.8 - Other specified hypothyroidism, E78.9 - Disorder of lipoprotein metabolism, unspecified, I48.92 - Unspecified atrial flutter, J44.9 - Chronic obstructive pulmonary disease, unspecified TSH reflex Free T4 Today D50.9 - Iron deficiency anemia, unspecified, E03.8 - Other specified hypothyroidism, E78.9 - Disorder of lipoprotein metabolism, unspecified, I48.92 - Unspecified atrial flutter, J44.9 - Chronic obstructive pulmonary disease, unspecified Lipid Panel Today D50.9 - Iron deficiency anemia, unspecified, E03.8 - Other specified hypothyroidism, E78.9 - Disorder of lipoprotein metabolism, unspecified, I48.92 - Unspecified atrial flutter, J44.9 - Chronic obstructive pulmonary disease, unspecified Vitamin D 25-OH (D2 and D3) Today D50.9 - Iron deficiency anemia, unspecified, E03.8 - Other specified hypothyroidism, E78.9 - Disorder of lipoprotein metabolism, unspecified, I48.92 - Unspecified atrial flutter, J44.9 - Chronic obstructive pulmonary disease, unspecified Vitamin B12 Today D50.9 - Iron deficiency anemia, unspecified, E03.8 - Other specified hypothyroidism, E78.9 - Disorder of lipoprotein metabolism, unspecified, I48.92 - Unspecified atrial flutter, J44.9 - Chronic obstructive pulmonary disease, unspecified Coding Level of Care Code [facility] Pt Level 3 (80707) Diagnoses Iron deficiency anemia, unspecified iron deficiency anemia type D50.9 Iron deficiency anemia type: unspecified iron deficiency Paroxysmal atrial flutter I48.92 COPD, mild J44.9 Lipid disorder E78.9 Other specified acquired hypothyroidism E03.8 Time Spent (min) 20
== END 2024-02-25 16:31 | disposition home or self-care (01) ==
LOC: HO.HMGC 08:46
PROVIDERS: PCP Internal Medicine; Visit Provider Internal Medicine
DX: D50.9 Iron deficiency anemia, unspecified (principal); I48.92 Unspecified atrial flutter; J44.9 Chronic obstructive pulmonary disease, unspecified; E78.9 Disorder of lipoprotein metabolism, unspecified; E03.8 Other specified hypothyroidism
CPT/HCPCS: 99213

== ENCOUNTER 2024-03-14 15:39 | Outpatient (REF) | payer OTHER, SELFPAY ==
--- NOTE | ~2024-03-14 | US_ITS ---
EXAMINATION: US PELVIS CLINICAL INFORMATION: Postmenopausal bleeding COMPARISON: None available. TECHNIQUE: Ultrasound of the pelvis is performed using both transabdominal and transvaginal transducers along with Doppler. Transvaginal imaging is performed due to inadequate visualization transabdominally. FINDINGS: Uterus: The uterus is anteverted and measures 8.4 x 3.2 x 3.8 cm. The double wall endometrial thickness is 0.5 mm. There is an abnormal fluid collection seen within the endometrial cavity measuring 2.4 x 1.1 x 2.5 cm. A hypoechoic mass cannot be excluded. Trace amount of fluid is seen in the cervix. The uterus is smooth in contour and has normal myometrial echogenicity. No visible fibroid. Adnexa: Neither ovary could be seen. A small amount of fluid is present in the cul-de-sac. US/US pelvic and transvaginal IMPRESSION: Abnormal fluid collection within the endometrial cavity. Further evaluation is recommended with hysteroscopy and biopsy.
== END 2024-03-14 15:40 | disposition home or self-care (01) ==
LOC: HO.US 15:39
PROVIDERS: PCP Internal Medicine; Visit Provider Internal Medicine
DX: N95.0 Postmenopausal bleeding (principal)
CPT/HCPCS: 76830; 76856

== ENCOUNTER 2024-03-23 10:24 | Outpatient (AMB) | payer OTHER, SELFPAY ==
--- NOTE | 2024-03-23 10:25 | MHC.OFFVIS ---
Vital Signs 03/23/24 10:28 Height 5 ft 6 in BP 134/72 Intake Visit Reasons: New patient PMB Intake Note: PMB 03/03 to 03/05 Assistant Facility Manager: Assistant Facility Manager Present Allergies latex [LATEX] Allergy (Unknown, Verified 03/23/24 10:29) UNKNOWN Cnophec-XQQ-KiO Reductase Inhibitor [EWTAAIM-GQO-PVQ REDUCTASE INHIBITOR] Allergy (Unknown, Verified 03/23/24 10:29) ? liver issue Sulfa (Sulfonamide Antibiotics) [SULFA (SULFONAMIDE ANTIBIOTICS)] Allergy (Unknown, Verified 03/23/24 10:29) yeast infections, yeast infection Adhesive bandages Allergy (Unknown, Uncoded 12/17/23 08:10) rash to site HPI Comments Details: Presenting referred from her PCP regarding vaginal bleeding that occurred mid February for 3 days. No history of abnormal Pap smears, last cervical cancer screening was many years ago. The patient gives a history of anemia, H&H was 8/28.3 in in October of 2023 and rectal bleeding that she attributed to hemorrhoids. The patient was prescribed iron and repeat H&H was within normal in 02/13 Pelvic ultrasound done in 03/14 showed the following: Uterus: The uterus is anteverted and measures 8.4 x 3.2 x 3.8 cm. The double wall endometrial thickness is 0.5 mm. There is an abnormal fluid collection seen within the endometrial cavity measuring 2.4 x 1.1 x 2.5 cm. A hypoechoic mass cannot be excluded. Trace amount of fluid is seen in the cervix. The uterus is smooth in contour and has normal myometrial echogenicity. No visible fibroid. [facility] Medical History Pericardial effusion Surgical History History of parathyroid surgery Mammogram normal History of total knee replacement (TKR) History of basal cell carcinoma excision History of colonoscopy Parathyroid adenoma Family History Father Stroke Mother CHF (congestive heart failure) Stroke Brother Colon cancer Brother Brain tumor Social History Housing: Apartment Patient Tobacco Use Status: Never used Tobacco e-Cigarette/Vaping Use: Never Used service: No Current occupational status: retired Cognitive needs: No Hearing needs: Yes Vision needs: Yes Review of Systems Const All systems reviewed & are unremarkable except as noted in HPI and below Physical Exam General: Yes no CVA tenderness External Female Exam: normal external appearance and normal appearance of the urethra Speculum Exam - Vagina: normal appearance of the vagina, normal palpation, no lesions and no masses Speculum Exam - Cervix: normal appearance of the cervix, normal palpation, no lesions, no masses and nontender Bimanual exam- vagina & uterus: normal bimanual exam, normal palpation, uterine size normal, normal palpation, uterine shape normal, No Cervical tenderness present and non-tender Bimanual Exam- Adnexa, other: normal adnexae Back/Spine/Pelvis Back: no CVA tenderness Office Procedures Endometrial Biopsy Details: The patient was counseled regarding the indication and benefits of endometrial sampling to rule out endometrial pathology including not limited to endometrial hyperplasia or endometrial cancer and others; The alternatives (Either do nothing vs. hysteroscopy D&C) & the risks were discussed with the patient including but not limited: pain, uterine perforation, bleeding, infection, possible injury to bladder, bowel, ureter, possible need for blood transfusion with all its possible risks. The patient verbalized understanding all questions answered and signed consent. The patient was placed into the dorsal lithotomy position; a speculum was inserted in the vagina. Using aseptic technique for the procedure, the cervix was cleansed with Betadine. The anterior lip of the cervix was grasped with a single tooth tenaculum. The uterus was sounded to 7 cm with a 4 mm Pipelle was used. Tissues samples were obtained and placed in formalin, in a patient labeled container and sent to the pathology department. At the end of the procedure, there was minimal bleeding noted The patient tolerated the procedure well and was discharged in good condition with the following instructions: Nothing in the vagina until the bleeding stops. No sex until the bleeding stops, to call if any of the following occurs: fever (>100.4), flu-like symptoms, abdominal pain, heavy bleeding, four smelling vaginal discharge. The patient was instructed to schedule a Follow up appointment in 2 weeks to discuss pathology results of the biopsy and treatment options. This note was generated with a voice recognition program. Some errors may have been overlooked during the review of this note. Sometimes these errors may affect the content or meaning of a given sentence. 28039-Avhsvdrvyyi Biopsy Assessment & Plan Assessment & Plan (1) Postmenopausal bleeding: Comment: Thick endometrium and 2.5 x 2.4 cm collection possible endometrial mass by ultrasound Code(s): N95.0 - Postmenopausal bleeding Category: Medical Plan: Discussed with the patient the differential diagnosis of post menopausal bleeding with normal pelvic exam including but not limited to, endometrial hyperplasia, cancer, polyps and other causes; Discussed with the patient the pelvic ultrasound findings, the endometrial stripe thickenss measured by ultrasound was 5 mm, more than 4mm, in addition explained to the patient the presence of fluid collection possible endometrial mass measuring 2.4 x 2.5 cm. The negative predictive value, positive predictive value, Sensitivity, specificity of using ultrasound measurement of endometrial stripe to detecting endometrial pathology including hyperplasia , polyp or cancer were discussed with the patient. Recommended to the patient that the next step is an endometrial sampling via hysteroscopy D&C possible polypectomy versus endometrial biopsy to r/o endometrial pathology including hyperplasia or cancer. All the pros and cons risks and benefits of each approach were discussed with the patient, endometrial biopsy being less invasive, office procedure with less sensitivity and inability diagnose a polyp/direct biopsy from an endometrial mass and removal versus hysteroscopy done under anesthesia more invasive more sensitive to endometrial cancer and possibility of diagnosing an endometrial polyp/mass with the possibility of polypectomy/excision of endometrial mass. All questions were answered pt verbalized understanding and decided to proceed with endometrial biopsy. EMB done, see procedure note. Instructions given the patient to schedule a 2 week follow-up appointment (2) Blood per rectum: Code(s): K62.5 - Hemorrhage of anus and rectum Category: Medical Plan: Discussed with the patient the differential diagnosis of rectal bleed anemia, will refer to GI for further management, the patient requests to be referred to Dr. Ruperto Brewster. Orders: Orders AMB Endometrial Biopsy Today N95.0 - Postmenopausal bleeding Referrals Gastroenterology Referral K62.5 - Hemorrhage of anus and rectum Coding Level of Care Code New Pt Level 3 (37863) Diagnoses Postmenopausal bleeding N95.0 Blood per rectum K62.5 CPT Codes Endometrial Biopsy - CPT: 13750-Ufuqggituei Biopsy ([id number])
[2024-03-23 10:28] VITALS: BP 134/72
== END 2024-03-23 11:16 | disposition home or self-care (01) ==
LOC: HO.HWS 10:24
PROVIDERS: PCP Internal Medicine; Visit Provider Obstetrics & Gynecology
DX: N95.0 Postmenopausal bleeding (principal); K62.5 Hemorrhage of anus and rectum
CPT/HCPCS: 58100; 99203

== ENCOUNTER 2024-03-23 10:24 | Outpatient (REF) | payer OTHER, SELFPAY ==
[2024-03-31 03:37] LABS: HPV mRNA E6/E7 rflx Not Detected (Not Detected)
== END 2024-03-23 10:25 | disposition home or self-care (01) ==
LOC: HO.LNP 10:24
PROVIDERS: PCP Internal Medicine; Visit Provider Obstetrics & Gynecology
DX: N95.0 Postmenopausal bleeding (principal); K62.5 Hemorrhage of anus and rectum
CPT/HCPCS: 58100; 87624; 88142; 88305; 88341; 88342; 88360; 99202

== ENCOUNTER 2024-04-07 13:00 | Outpatient (AMB) | payer OTHER, SELFPAY ==
--- NOTE | 2024-04-07 13:08 | MHC.OFFVIS ---
Vital Signs 04/07/24 13:10 Height 5 ft 6 in Weight 187 lb 6.287 oz BMI 30.2 BP 100/60 Intake Visit Reasons: EMB results Coordinator Of Genetic Services Required: No Information Interpreted: non-clinical & clinical Accompanied by: Daughter Allergies latex [LATEX] Allergy (Unknown, Verified 04/07/24 13:11) UNKNOWN Ylaimkn-GVI-ChR Reductase Inhibitor [GMDWDZL-NUX-VKW REDUCTASE INHIBITOR] Allergy (Unknown, Verified 04/07/24 13:11) ? liver issue Sulfa (Sulfonamide Antibiotics) [SULFA (SULFONAMIDE ANTIBIOTICS)] Allergy (Unknown, Verified 04/07/24 13:11) yeast infections, yeast infection Adhesive bandages Allergy (Unknown, Uncoded 04/07/24 13:11) rash to site HPI Comments Details: The patient is presenting after endometrial biopsy. The patient has no complaints, no vaginal bleeding, no feverishness chills or abdominal pain. The endometrial biopsy pathology report showed the following: Endometrium, biopsy: Superficial strips of atypical epithelium. See comment. Comment: The atypical epithelium has mucinous features and may be arising in either the endometrium or the endocervix. Recommend further sampling (endometrial and endocervical curettage) for further characterization, as clinically appropriate Co testing still pending [facility] Medical History (Updated 04/07/24 @ 13:21 by Dheeraj Martines MD) Paroxysmal atrial flutter Pericardial effusion Surgical History History of parathyroid surgery Mammogram normal History of total knee replacement (TKR) History of basal cell carcinoma excision History of colonoscopy Parathyroid adenoma Family History Father Stroke Mother CHF (congestive heart failure) Stroke Brother Colon cancer Brother Brain tumor Social History Housing: Apartment Patient Tobacco Use Status: Never used Tobacco e-Cigarette/Vaping Use: Never Used service: No Current occupational status: retired Cognitive needs: No Hearing needs: Yes Vision needs: Yes Review of Systems Const All systems reviewed & are unremarkable except as noted in HPI and below Reports as per HPI and Reports no additional complaints GI Reports no additional complaints Reports no additional complaints Assessment & Plan Assessment & Plan (1) Postmenopausal bleeding: Comment: Thick endometrium and 2.5 x 2.4 cm collection possible endometrial mass by ultrasound Code(s): N95.0 - Postmenopausal bleeding Category: Medical Plan: Discussed with the patient the results the pathology, explained to the patient that endometrial /endocervical pathology is a suspicion including hyperplasia and/or malignancy but it has not been ruled out yet. Recommended to the patient that the next step is an endometrial sampling via hysteroscopy D&C possible polypectomy with ECC versus endometrial biopsy/ECC to r/o endometrial/endocervical pathology including hyperplasia or cancer. All the pros and cons risks and benefits of each approach were discussed with the patient, office endometrial biopsy/ECC being less invasive, office procedure with less sensitivity and inability diagnose a polyp and removal versus hysteroscopy done under anesthesia more invasive more sensitive to endometrial cancer and possibility of diagnosing and endometrial polyp with the possibility of polypectomy. All questions were answered pt verbalized understanding and decided to proceed with hysteroscopy D&C/ECC under anesthesia. Since the patient's has atrial flutter on Xarelto will refer to a tertiary care center, [facility] for hysteroscopy D&C/ECC where more resources are available. All questions answered, the patient verbalized understanding and agreed with the plan Coding Level of Care Code Est Pt Level 3 (72811) Diagnoses Postmenopausal bleeding N95.0
[2024-04-07 13:10] VITALS: BP 100/60; BMI 30.2
== END 2024-04-07 13:22 | disposition home or self-care (01) ==
PROVIDERS: PCP Internal Medicine; Visit Provider Obstetrics & Gynecology
DX: N95.0 Postmenopausal bleeding (principal)
CPT/HCPCS: 99213

== ENCOUNTER → 2024-04-07 13:00 | Outpatient (BNVA) | payer OTHER, SELFPAY | PROVIDERS: PCP Internal Medicine; Visit Provider Obstetrics & Gynecology | DX: N95.0 Postmenopausal bleeding (principal) | CPT/HCPCS: 99212 ==

== ENCOUNTER 2024-04-21 09:10 | Outpatient (REF) | payer OTHER, SELFPAY | END 2024-04-21 09:11 | disposition home or self-care (01) | LOC: HO.LNP 09:10 | PROVIDERS: PCP Internal Medicine; Visit Provider Obstetrics & Gynecology | DX: R87.619 Unspecified abnormal cytological findings in specimens from cervix uteri (principal); N95.0 Postmenopausal bleeding; Z71.2 Person consulting for explanation of examination or test findings | CPT/HCPCS: 57454; 58110; 88305; 88341; 88342; 88360 ==

== ENCOUNTER 2024-04-21 12:48 | Outpatient (AMB) | payer OTHER, SELFPAY ==
--- NOTE | 2024-04-21 09:10 | MHC.OFFVIS ---
Intake Visit Reasons: Pap results Range Technician Required: No Information Interpreted: non-clinical & clinical Allergies latex [LATEX] Allergy (Unknown, Verified 04/21/24 09:11) UNKNOWN Etorcsa-MHY-QaM Reductase Inhibitor [ECIZEVF-RSY-LTT REDUCTASE INHIBITOR] Allergy (Unknown, Verified 04/21/24 09:11) ? liver issue Sulfa (Sulfonamide Antibiotics) [SULFA (SULFONAMIDE ANTIBIOTICS)] Allergy (Unknown, Verified 04/21/24 09:11) yeast infections, yeast infection Adhesive bandages Allergy (Unknown, Uncoded 04/21/24 09:11) rash to site HPI Comments Details: The patient is presenting to discuss the results of the Pap smear showing atypical glandular cells, favor neoplasia, HPV. The patient also had endometrial biopsy , the pathology of which showed the following: Endometrium, biopsy: Superficial strips of atypical epithelium. See comment. Comment: The atypical epithelium has mucinous features and may be arising in either the endometrium or the endocervix. Recommend further sampling (endometrial and endocervical curettage) for further characterization, as clinically appropriate The patient was counseled about options of treatment after endometrial biopsy results came back, the cervical cytology results were still pending, repeat EMB in the office versus hysteroscopy D&C possible polypectomy/myomectomy, the patient decided to proceed with hysteroscopy under anesthesia, given the patient's atrial flutter on Xarelto, group the patient was referred to [facility] were more resources are available, but it turned out that [facility] system does not take the patient's insurance, so a referral to [facility] was placed, we did not hear back from them yet. Meanwhile Pap smear results came back as atypical glandular cells favor neoplasia. Meanwhile the patient is stating that her insurance is reverting back to Medicare/Medicaid therefore she could be referred to [facility]. The patient would like to have a colposcopy/biopsy/ECC was repeat endometrial biopsy here in the office [facility] Medical History Paroxysmal atrial flutter Pericardial effusion Surgical History History of parathyroid surgery Mammogram normal History of total knee replacement (TKR) History of basal cell carcinoma excision History of colonoscopy Parathyroid adenoma Family History Father Stroke Mother CHF (congestive heart failure) Stroke Brother Colon cancer Brother Brain tumor Social History Housing: Apartment Patient Tobacco Use Status: Never used Tobacco e-Cigarette/Vaping Use: Never Used service: No Current occupational status: retired Cognitive needs: No Hearing needs: Yes Vision needs: Yes Review of Systems Const All systems reviewed & are unremarkable except as noted in HPI and below Reports as per HPI and Reports no additional complaints GI Reports no additional complaints Reports no additional complaints Office Procedures Colposcopy Colposcopy: Pre-Procedure Counseling: Before beginning the procedure, I conducted comprehensive counseling with the patient. We thoroughly discussed the procedure itself, including its details, alternatives, and all associated risks. This included but not limited to the following complications such as bleeding, infection, and injury to the vagina, bladder, and vessels, as well as the potential need for transfusion with all its associated risks. Subsequently, the patient sign the consent. Pap smear result: JEMIMA favor neoplasia. Procedure: During the procedure, the following steps were performed: A speculum was inserted, and acetic acid was applied. Colposcopy was conducted, allowing visualization of the transformation zone. Acetowhite lesions were identified at the 11+12 o'clock position. Cervical biopsies were obtained from the 11+1 o'clock position, followed by an endocervical curettage (ECC). Vaginoscopy of the upper vagina revealed no evidence of aceto-white lesions. Hemostasis was achieved using Monsel solution, and the patient tolerated the procedure well. Post-Procedure Instructions: The patient was advised to promptly contact the office or the after hours answering service or go to the emergency room if experiencing a temperature exceeding 100.4?F, abdominal pain, nausea/vomiting, or bleeding. Additionally, the patient was instructed to abstain from vaginal intercourse and bathtub use. The patient confirmed understanding of these instructions. Discharge Instructions: The patient was instructed to schedule a follow-up appointment in 2 weeks for further evaluation and management. Please note that this note was generated using a voice recognition program, and errors may have occurred during security guards dispatcher. [id number] of cervix including upper vagina with biopsy and ECC Procedure code (CPT) selection complete Endometrial Biopsy Details: The patient was counseled regarding the indication and benefits of endometrial sampling to rule out endometrial pathology including not limited to endometrial hyperplasia or endometrial cancer and others; The alternatives (Either do nothing vs. hysteroscopy D&C) & the risks were discussed with the patient including but not limited: pain, uterine perforation, bleeding, infection, possible injury to bladder, bowel, ureter, possible need for blood transfusion with all its possible risks. The patient verbalized understanding all questions answered and signed consent. The patient was placed into the dorsal lithotomy position; a speculum was inserted in the vagina. Using aseptic technique for the procedure, the cervix was cleansed with Betadine. The anterior lip of the cervix was grasped with a single tooth tenaculum. The uterus was sounded to 7 cm with a 4 mm Pipelle was used. Tissues samples were obtained and placed in formalin, in a patient labeled container and sent to the pathology department. At the end of the procedure, there was minimal bleeding noted The patient tolerated the procedure well and was discharged in good condition with the following instructions: Nothing in the vagina until the bleeding stops. No sex until the bleeding stops, to call if any of the following occurs: fever (>100.4), flu-like symptoms, abdominal pain, heavy bleeding, four smelling vaginal discharge. The patient was instructed to schedule a Follow up appointment in 2 weeks to discuss pathology results of the biopsy and treatment options. This note was generated with a voice recognition program. Some errors may have been overlooked during the review of this note. Sometimes these errors may affect the content or meaning of a given sentence. [id number] Biopsy Telehealth Telehealth Telehealth Platform: Telephone Location of provider rendering services: practice address Location of patient: address on file Patient Identification confirmed using: Name, : Yes Telehealth method: voice only Patient verbally consented to treatment: Yes Patient verbally consented to billing insurance company: Yes Patient informed of any privacy concerns related to visit: Yes Assessment & Plan Assessment & Plan (1) Atypical glandular cells, favor neoplasia on cervical Pap smear: Code(s): R87.619 - Unspecified abnormal cytological findings in specimens from cervix uteri Category: Medical Plan: Discussed with the patient the result of her abnormal pap smear, its significance, the false positive/negative rate of a Pap smear as a screening test in detecting cervical cancer and the indication for a diagnostic test -colposcopy, biopsy, endocervical curettage. Given to significance of her findings and since the referral to [facility] has not occurred yet and there is no scheduled date, the patient was given option to have a colposcopy/cervical biopsy/ECC with repeat office endometrial biopsy . The the options discussed with the patient is to till [facility] referral is scheduled. The patient decided not to delay the diagnostic test and to proceed with colposcopy biopsy ECC with repeat endometrial biopsy , see procedure note (2) Postmenopausal bleeding: Code(s): N95.0 - Postmenopausal bleeding Category: Medical Plan: Discussed again the results of the pathology, recommended either repeat endometrial biopsy or hysteroscopy D&C/ECC, all pros and cons, risks and benefits of each approach were discussed with the patient, the patient decided to proceed with repeat office endometrial biopsy with a colposcopy/ECC/biopsy , procedure done, see note Orders: Orders AMB Colposcopy Today R87.619 - Unspecified abnormal cytological findings in specimens from cervix uteri AMB Endometrial Biopsy Today N95.0 - Postmenopausal bleeding Coding Level of Care Code Procedure Only Diagnoses Atypical glandular cells, favor neoplasia on cervical Pap smear R87.619 Postmenopausal bleeding N95.0 CPT Codes Colposcopy - CPT: 09028-Aeehzqqdm of cervix including upper vagina with biopsy and ECC ([id number]) Endometrial Biopsy - CPT: 40950-Hovshdjenua Biopsy ([id number])
== END 2024-04-21 13:54 | disposition home or self-care (01) ==
PROVIDERS: PCP Internal Medicine; Visit Provider Obstetrics & Gynecology
DX: R87.619 Unspecified abnormal cytological findings in specimens from cervix uteri (principal); N95.0 Postmenopausal bleeding
CPT/HCPCS: 57454; 58110

== ENCOUNTER 2024-04-27 10:43 | Outpatient (AMB) | payer MEDICARE, MEDICAID, SELFPAY ==
--- NOTE | 2024-04-27 10:43 | MHC.OFFVIS ---
Intake Visit Reasons: EMB / Colpo results Allergies latex [LATEX] Allergy (Unknown, Verified 04/21/24 09:11) UNKNOWN Slwxvzl-KCG-EjJ Reductase Inhibitor [BVBUVAE-OXW-IHT REDUCTASE INHIBITOR] Allergy (Unknown, Verified 04/21/24 09:11) ? liver issue Sulfa (Sulfonamide Antibiotics) [SULFA (SULFONAMIDE ANTIBIOTICS)] Allergy (Unknown, Verified 04/21/24 09:11) yeast infections, yeast infection Adhesive bandages Allergy (Unknown, Uncoded 04/21/24 09:11) rash to site HPI Comments Details: The patient is scheduled tele health visit for follow-up post EMB, cervical biopsy x2 and ECC. 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 The patient was initially seen on 03/23/2024 in the office , she was referred by her PCP to our office after an episode of rectal bleeding and anemia, which the patient attributed to hemorrhoids, the patient was started on iron and a pelvic ultrasound was ordered by her PCP. Pelvic ultrasound in 03/16 showed the following: Uterus: The uterus is anteverted and measures 8.4 x 3.2 x 3.8 cm. The double wall endometrial thickness is 0.5 mm. There is an abnormal fluid collection seen within the endometrial cavity measuring 2.4 x 1.1 x 2.5 cm. A hypoechoic mass cannot be excluded. Trace amount of fluid is seen in the cervix. The uterus is smooth in contour and has normal myometrial echogenicity. No visible fibroid. Adnexa: Neither ovary could be seen. A small amount of fluid is present in the cul-de-sac. Office endometrial biopsy on 03/23, the pathology results showed the following: Endometrium, biopsy: Superficial strips of atypical epithelium. See comment. Comment: The atypical epithelium has mucinous features and may be arising in either the endometrium or the endocervix. 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, pathology report still pending [facility] Medical History Paroxysmal atrial flutter Pericardial effusion Surgical History History of parathyroid surgery Mammogram normal History of total knee replacement (TKR) History of basal cell carcinoma excision History of colonoscopy Parathyroid adenoma Family History Father Stroke Mother CHF (congestive heart failure) Stroke Brother Colon cancer Brother Brain tumor Social History Housing: Apartment Patient Tobacco Use Status: Never used Tobacco e-Cigarette/Vaping Use: Never Used service: No Current occupational status: retired Cognitive needs: No Hearing needs: Yes Vision needs: Yes Review of Systems Const All systems reviewed & are unremarkable except as noted in HPI and below Reports as per HPI and Reports no additional complaints GI Reports no additional complaints Reports no additional complaints Telehealth Telehealth Telehealth Platform: Telephone Location of provider rendering services: practice address Location of patient: address on file Patient Identification confirmed using: Name, : Yes Telehealth method: video Patient verbally consented to treatment: Yes Patient verbally consented to billing insurance company: Yes Patient informed of any privacy concerns related to visit: Yes Assessment & Plan Assessment & Plan (1) 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 Epps, the patient is aware. All questions answered, the patient verbalized understanding I spent a total of 20 minutes reviewing the chart, talking to the patient via video and documenting in the medical record. Orders: Orders Blood Urea Nitrogen Today C80.1 - Malignant (primary) neoplasm, unspecified Creatinine Today C80.1 - Malignant (primary) neoplasm, unspecified CT abdomen pelvis wo/w IV con Today C80.1 - Malignant (primary) neoplasm, unspecified CA-125 Today C80.1 - Malignant (primary) neoplasm, unspecified XR chest 2V Today C80.1 - Malignant (primary) neoplasm, unspecified Referrals Gynecologic Oncology Referral C80.1 - Malignant (primary) neoplasm, unspecified Coding Level of Care Code Tele Est Pt Level 1 (70638) Diagnoses Clear cell carcinoma C80.1
== END 2024-04-27 11:21 | disposition home or self-care (01) ==
LOC: HO.HWS 10:43
PROVIDERS: PCP Internal Medicine; Visit Provider Obstetrics & Gynecology
DX: C80.1 Malignant (primary) neoplasm, unspecified (principal)
CPT/HCPCS: 99211

== ENCOUNTER 2024-04-27 10:43 | Outpatient (REF) | payer MEDICARE, MEDICAID, SELFPAY ==
--- NOTE | ~2024-04-27 | XR_ITS ---
EXAMINATION: XR CHEST CLINICAL INFORMATION: Malignant neoplasm unspecified. COMPARISON: 08/16/2019. TECHNIQUE: 2 views of the chest were obtained. FINDINGS: There is no gross pneumothorax. Cardiac silhouette borderline enlarged. Mild S-shaped thoracolumbar scoliosis with multilevel degenerative changes. No pleural effusion. Redemonstration of hazy opacity at the cardiac apex, similar dating back to April 27, 2017. Redemonstration of previously noted bilateral healed rib fractures. XR/XR chest 2V IMPRESSION: 1. Redemonstration of hazy opacity at the cardiac apex, similar dating back to April 27, 2017. 2. Redemonstration of previously noted bilateral healed rib fractures.
[2024-04-27 13:50] LABS: Blood Urea Nitrogen 13 mg/dL (9-16); Estimated Glomerular Filt Rate > 60
[2024-05-03 13:19] LABS: CA-125 428 U/mL (<35)
== END 2024-04-27 10:44 | disposition home or self-care (01) ==
LOC: HO.XRAY 10:43
PROVIDERS: PCP Internal Medicine; Visit Provider Obstetrics & Gynecology
DX: C80.1 Malignant (primary) neoplasm, unspecified (principal); I48.0 Paroxysmal atrial fibrillation
CPT/HCPCS: 36415; 71046; 82565; 84520; 86304

== ENCOUNTER 2024-05-03 14:39 | Outpatient (REF) | payer MEDICARE, MEDICAID, SELFPAY ==
[2024-05-03 15:45] LABS: Blood Urea Nitrogen 16 mg/dL (9-16); Estimated Glomerular Filt Rate > 60
== END 2024-05-03 14:40 | disposition home or self-care (01) ==
LOC: HO.LAB 14:39
PROVIDERS: PCP Internal Medicine; Visit Provider Obstetrics & Gynecology
DX: C80.1 Malignant (primary) neoplasm, unspecified (principal)
CPT/HCPCS: 36415; 82565; 84520

== ENCOUNTER 2024-05-05 12:20 | Outpatient (REF) | payer MEDICARE, MEDICAID, SELFPAY ==
--- NOTE | ~2024-05-05 | CT_ITS ---
EXAMINATION: CT ABDOMEN AND PELVIS WITH CONTRAST CLINICAL INFORMATION: Malignant (primary) neoplasm, unspecified. COMPARISON: Pelvic ultrasound dated 03/14/2024. TECHNIQUE: Multidetector volumetric images were obtained from the superior aspect of the liver through the pubic symphysis following administration 85 mL of Omnipaque 350 intravenous contrast. Sagittal and coronal reformatted images were obtained on the technologist's workstation. Oral contrast: No This CT examination was performed using dose optimization techniques as appropriate, variously including the following: *Automated exposure control *Adjustment of mA and/or kV according to patient size (this includes techniques or standardized protocols for targeted exams where dose is matched to indication/reason for exam; i.e. extremities or head) *Use of iterative reconstruction technique DLP: 474 mGy-cm FINDINGS: LUNG BASES: The visualized lung bases are unremarkable. LIVER, GALLBLADDER, AND BILIARY TREE: The liver is normal in size, shape, and attenuation. No focal hepatic lesion or biliary ductal dilatation is present. There are layering gallstones, without gallbladder wall thickening or obvious pericholecystic inflammatory changes. PANCREAS: Unremarkable. SPLEEN: Unremarkable. ADRENAL GLANDS: Unremarkable. KIDNEYS AND URETERS: The kidneys are normal in size, shape, and attenuation. Multiple low-attenuation parapelvic cysts are seen, for which no imaging follow-up is recommended. No hydronephrosis, hydroureter, or calculi seen. No perinephric stranding. BLADDER: Unremarkable. GASTROINTESTINAL TRACT: There is moderately severe sigmoid diverticulosis, without acute diverticulitis. There is a moderately large stool burden. No obstruction, free intraperitoneal air or abscess is seen. There is no focal bowel wall thickening. The vermiform appendix is normal ABDOMINAL WALL: No significant hernia is appreciated. LYMPH NODES: Normal. VASCULAR: There is mild aortoiliac atherosclerotic calcification. No abdominal aortic aneurysm or dissection is seen. PELVIC VISCERA: The uterus is normal in size. There is significant fluid within the endometrial canal, and possible soft tissue density is questioned in the distal endometrial canal (8:66). No adnexal mass or pelvic free fluid is seen. OSSEOUS STRUCTURES: There are multi-level degenerative changes of the thoracolumbar spine, with vacuum disc phenomenon noted at T9-T10, T12-L1 and L2-L3 through L5-S1. No acute or aggressive osseous finding is noted. CT/CT abdomen pelvis w IV con IMPRESSION: 1. Correlating with the recent ultrasound findings, there is abnormal fluid and soft tissue density within the uterus. Continued Gynecology evaluation and management is recommended. No periuterine mass, fluid or lymphadenopathy is seen. 2. There is cholelithiasis. 3. There is moderately severe sigmoid diverticulosis, without acute diverticulitis. 4. There are multi-level degenerative changes of the thoracolumbar spine. No aggressive osseous lesion is seen.
[2024-05-05] MEDS: Barium Sulfate Oral (Vanilla) 450 ML ORAL.SUSP 900 ML PO (14:25)
== END 2024-05-05 12:21 | disposition home or self-care (01) ==
LOC: HO.CT 12:20
PROVIDERS: PCP Internal Medicine; Visit Provider Obstetrics & Gynecology
DX: C80.1 Malignant (primary) neoplasm, unspecified (principal)
CPT/HCPCS: 74177

== ENCOUNTER 2024-05-18 09:19 | Outpatient (AMB) | payer MEDICARE, MEDICAID, SELFPAY ==
[2024-05-18 09:24] VITALS: BP 120/62; PULSE 70; BMI 28.8
--- NOTE | 2024-05-18 09:24 | A.OFFVIS_ITS ---
Vital Signs 05/18/24 09:24 Height 5 ft 6 in Weight 178 lb 9.191 oz BMI 28.8 BP 120/62 Blood Pressure Location Lt brachial Position Sitting Pulse 70 Pulse Source Monitor Intake Visit Reasons: over due follow up Allergies latex [LATEX] Allergy (Unknown, Verified 04/21/24 09:11) UNKNOWN Ebwvuvk-YYW-KhZ Reductase Inhibitor [KIJDGQN-XOG-GHB REDUCTASE INHIBITOR] Allergy (Unknown, Verified 04/21/24 09:11) ? liver issue Sulfa (Sulfonamide Antibiotics) [SULFA (SULFONAMIDE ANTIBIOTICS)] Allergy (Unknown, Verified 04/21/24 09:11) yeast infections, yeast infection Adhesive bandages Allergy (Unknown, Uncoded 04/21/24 09:11) rash to site Medication List - Last Reconciled 05/18/24 by Darrius Sanches MD metoprolol tartrate 50 mg PO BID 90 days rivaroxaban (Xarelto) 20 mg PO QPM rosuvastatin 10 mg PO DAILY 90 days sennosides-docusate sodium 8.6-50 mg (Senokot-S) 1 tab-cap PO BEDTIME 90 days Synthroid (levothyroxine) 75 mcg PO DAILY 90 days NS HPI Comments Details: Kimmy returns for follow-up regarding atrial flutter. From cardiac, she is doing well but it seems that she got diagnosed with endometrial cancer and needs to go for surgery very soon. Hence she also needs preoperative cardiac evalu ation. [facility] Medical History Paroxysmal atrial flutter Pericardial effusion Surgical History History of parathyroid surgery Mammogram normal History of total knee replacement (TKR) History of basal cell carcinoma excision History of colonoscopy Parathyroid adenoma Family History Father Stroke Mother CHF (congestive heart failure) Stroke Brother Colon cancer Brother Brain tumor Social History Housing: Apartment Patient Tobacco Use Status: Never used Tobacco e-Cigarette/Vaping Use: Never Used service: No Current occupational status: retired Cognitive needs: No Hearing needs: Yes Vision needs: Yes Review of Systems Const Denies weakness ENT Denies dizziness Card Denies chest pain, Denies chest pain with activity, Denies syncope, Denies rapid heart rate, Denies pedal edema, Denies edema, Denies leg edema, Denies lightheadedness, Denies palpitations, Denies dyspnea, Denies dyspnea on exertion and Denies orthopnea Resp Denies cough, Denies dyspnea and Denies dyspnea on exertion GI Denies hematochezia and Denies change in stool character Musc Denies abnormal gait, Denies muscle cramps, Denies muscle weakness, Denies numbness, Denies radiating pain into limb and Denies tingling Neuro Denies abnormal gait, Denies dizziness, Denies syncope, Denies numbness, Denies tingling and Denies weakness Endo Denies palpitations Physical Exam Vital Signs: Last Vital Signs Pulse 70 05/18/24 09:24 BP 120/62 05/18/24 09:24 BMI result Body Mass Index 28.8 Const General: comfortable and no acute distress Orientation/consciousness: patient oriented x3 HEENT Other: Unremarkable Head: Yes normal to inspection Neck Neck: Yes normal visual inspection Chest Chest palpation & inspection: normal inspection of the chest Resp Auscultation: clear to auscultation bilaterally Cardio Palpation: normal PMI Heart sounds: S1 normal heart sound present, S2 normal heart sound present, no gallops, no murmurs and no rubs GI Palpation (GI): Soft to palpation Back/Spine/Pelvis Other: unremarkable Skin General skin exam: no rashes or lesions noted Neuro General: patient oriented x3 Extrem General: Yes normal to inspection Psych Mental Status: mental status grossly normal Office Procedures EKG Details: EKG with sinus rhythm at 70/Min; borderline CA prolongation to 216 milliseconds; normal corrected QT. otherwise unremarkable. 05564-Pzkkkskvqeiaifmyk, Complete Assessment & Plan Assessment & Plan (1) Preoperative cardiovascular examination: Code(s): Z01.810 - Encounter for preprocedural cardiovascular examination Category: Medical Plan: Intermediate cardiac risk for hysterectomy. May proceed. Perioperative risks including myocardial infarction, arrhythmias discussed. She understands. May hold Xarelto for 2 days prior to surgery. Resume postop. (2) Paroxysmal atrial flutter: Code(s): I48.92 - Unspecified atrial flutter Category: Medical Plan: Continue beta-blockers. Continue anticoagulation. Last creatinine is 0.79 with a GFR > 60. (3) Leg edema: Code(s): R60.0 - Localized edema Category: Medical Plan: Suspected to be from venous insufficiency. Compression stockings. Not on regular diuretics. Coding Level of Care Code Est Pt Level 4 (12996) Diagnoses Preoperative cardiovascular examination Z01.810 Paroxysmal atrial flutter I48.92 Leg edema R60.0 CPT Codes EKG - CPT: 78065-Rjyxtqpdiflgkaktd, Complete ([id number])
== END 2024-05-18 09:46 | disposition home or self-care (01) ==
PROVIDERS: PCP Internal Medicine; Visit Provider Internal Medicine
DX: Z01.810 Encounter for preprocedural cardiovascular examination (principal); I48.92 Unspecified atrial flutter; R60.0 Localized edema
CPT/HCPCS: 93010; 99214

== ENCOUNTER → 2024-05-18 09:19 | Outpatient (BNVA) | payer MEDICARE, MEDICAID, SELFPAY | PROVIDERS: PCP Internal Medicine; Visit Provider Internal Medicine | DX: Z01.810 Encounter for preprocedural cardiovascular examination (principal); I48.92 Unspecified atrial flutter; R60.0 Localized edema | CPT/HCPCS: 93005; 99212 ==

== ENCOUNTER 2024-05-18 14:04 | Outpatient (AMB) | payer MEDICARE, MEDICAID, SELFPAY ==
--- NOTE | 2024-05-18 14:14 | MHC.PC.OV ---
Vital Signs 05/18/24 14:15 Height 5 ft 6 in Weight 178 lb BMI 28.7 BP 116/80 Blood Pressure Location Lt brachial Position Sitting Pulse 77 Pulse Source Pulse Oximeter Pulse Oximetry (%) 98 Oxygen Delivery Method Room Air Intake Visit Reasons: Pre OP Allergies latex [LATEX] Allergy (Unknown, Verified 05/18/24 14:15) UNKNOWN Ybncsuk-OBH-HzC Reductase Inhibitor [TSVZEZP-[id number]-[id number] REDUCTASE INHIBITOR] Allergy (Unknown, Verified 05/18/24 14:15) ? liver issue Sulfa (Sulfonamide Antibiotics) [SULFA (SULFONAMIDE ANTIBIOTICS)] Allergy (Unknown, Verified 05/18/24 14:15) yeast infections, yeast infection Adhesive bandages Allergy (Unknown, Uncoded 05/18/24 14:15) rash to site Medication List - Last Reconciled 05/18/24 by Melonie Lott MD metoprolol tartrate 50 mg PO BID 90 days rivaroxaban (Xarelto) 20 mg PO QPM rosuvastatin 10 mg PO DAILY 90 days sennosides-docusate sodium 8.6-50 mg (Senokot-S) 1 tab-cap PO BEDTIME 90 days Synthroid (levothyroxine) 75 mcg PO DAILY 90 days NS Tobacco use date assessed: 05/18/24 Dental Screening Dental Screen Date: 02/25/24 HPI Pre OP HPI Details Patient is 79-year-old female came in today for preop clearance Patient uterine cancer she will be going in for radical hysterectomy on May 30 She has already seen acetylene torch burner this morning and has been cleared Patient was instructed to hold Xarelto 2 days before the surgery and at the day of surgery. After the surgery patient will have 6 rounds of chemotherapy and 2 weeks of radiation depending on the biopsy report. Surgery will be performed by Dr. Epps at [facility] Patient is feeling anxious at time having panic attack because of that She is overwhelmed with the appointments and upcoming surgery. I have sent lorazepam 0.5 mg tablet patient may take 1 as needed Side effect of medication were reviewed, including not to drive while taking the medication Dizziness and risk of fall. She had extensive labs done at [facility], I do not have the report We will try to get the report before we sent this note over. Blood pressure is stable, rest of vital signs are stable She takes Synthroid 75 mcg for hypothyroidism. Other medications are from cardiology office. Pending lab reports, patient is stable for uterine cancer surgery on May 30 She also have Dermatology surgery scheduled for 17 of June for basal cell cancer on her forehead. [facility] Medical History Paroxysmal atrial flutter Pericardial effusion Surgical History History of parathyroid surgery Mammogram normal History of total knee replacement (TKR) History of basal cell carcinoma excision History of colonoscopy Parathyroid adenoma Family History Father Stroke Mother CHF (congestive heart failure) Stroke Brother Colon cancer Brother Brain tumor Social History Housing: Apartment Patient Tobacco Use Status: Never used Tobacco e-Cigarette/Vaping Use: Never Used service: No Current occupational status: retired Cognitive needs: No Hearing needs: Yes Vision needs: Yes Questionnaire Thrive Questionnaire Date Thrive assessed: 12/17/23 SUSAN-7 AMB Questionnaire SUSAN-7 Date SUSAN - 7 assessed: 12/17/23 Source: Developed by Drs. Gopi Castillo, Susana Calero, Rigoberto Jones and colleagues, with an educational gini from [employer]. Review of Systems Const Denies chills and Denies fever(s) ENT Denies epistaxis and Denies nasal discharge Card Denies chest pain Resp Denies chest congestion, Denies cough and Denies hemoptysis GI Denies diarrhea and Denies nausea Skin/Breast Denies rash Neuro Reports no additional complaints Psych Reports no additional complaints Endo Reports no additional complaints Physical exam (Primary Care) Vital Signs: Last Vital Signs Pulse 77 05/18/24 14:15 BP 116/80 05/18/24 14:15 Pulse Ox 98 05/18/24 14:15 Oxygen Delivery Method Room Air 05/18/24 14:15 BMI result Body Mass Index 28.7 Tobacco/Smoking Status: Tobacco use Status Tobacco use date assessed 05/18/24 05/18/24 14:19 Patient Tobacco Use Status Never used Tobacco 05/18/24 14:19 e-Cigarette/Vaping Use Never Used 05/18/24 14:19 Thrive Assessment: Date of Thrive Assessment Date Thrive assessed 12/17/23 05/18/24 14:19 Const General: cooperative, comfortable and no acute distress Orientation/consciousness: patient oriented x3 HENMT Head: Yes normocephalic Eyes General: appearance normal, both eyes and all related structures Neck Neck: Yes supple Resp Effort & Inspection: normal respiratory effort, no cough and no stridor Cardio Rhythm: regular rhythm Heart sounds: S1 normal heart sound present and S2 normal heart sound present Skin General skin exam: turgor normal Neuro General: patient oriented x3, tone normal and moves all extremities Extrem Other: Both shoulders are full range of motion without any pain Right lower extremity: no edema Left lower extremity: no edema Assessment and Plan Assessment & Plan (1) Pre-op evaluation: Code(s): Z01.818 - Encounter for other preprocedural examination (2) Uterine cancer: Code(s): C55 - Malignant neoplasm of uterus, part unspecified Qualifiers: Malignant neoplasm of uterus location: unspecified site of uterus Qualified Code(s): C55 - Malignant neoplasm of uterus, part unspecified (3) Panic anxiety syndrome: Code(s): F41.0 - Panic disorder [episodic paroxysmal anxiety] (4) Paroxysmal atrial flutter: Code(s): I48.92 - Unspecified atrial flutter (5) COPD, mild: Code(s): J44.9 - Chronic obstructive pulmonary disease, unspecified (6) Lipid disorder: Code(s): E78.9 - Disorder of lipoprotein metabolism, unspecified (7) Other specified acquired hypothyroidism: Code(s): E03.8 - Other specified hypothyroidism Plan Patient is 79-year-old female came in today for preop clearance Patient uterine cancer she will be going in for radical hysterectomy on May 30 She has already seen acetylene torch burner this morning and has been cleared Patient was instructed to hold Xarelto 2 days before the surgery and at the day of surgery. She is to continue with metoprolol for atrial flutter After the surgery patient will have 6 rounds of chemotherapy and 2 weeks of radiation depending on the biopsy report. Surgery will be performed by Dr. Epps at [facility] Patient is feeling anxious at time having panic attack because of that She is overwhelmed with the appointments and upcoming surgery. I have sent lorazepam 0.5 mg tablet patient may take 1 as needed Side effect of medication were reviewed, including not to drive while taking the medication Dizziness and risk of fall. She had extensive labs done at [facility], I do not have the report We will try to get the report before we sent this note over. Blood pressure is stable, rest of vital signs are stable She takes Synthroid 75 mcg for hypothyroidism. Other medications are from cardiology office. Pending lab reports, patient is stable for uterine cancer surgery on May 30 She also have Dermatology surgery scheduled for 17 of June for basal cell cancer on her forehead. 46 minutes spent in care of this patient, including reviewing of chart, cardiology consultation [id number] with the patient and nurse Yu, charting and coordination of care Orders: Orders Complete Blood Count Auto Diff Today C55 - Malignant neoplasm of uterus, part unspecified Comprehensive Met. Panel Today C55 - Malignant neoplasm of uterus, part unspecified Medications: New lorazepam 0.5 mg PO DAILY 30 days PRN 30 tabs 0RF anxiety Coding Level of Care Code Est Pt Level 5 (77177) Diagnoses Pre-op evaluation Z01.818 Malignant neoplasm of uterus, unspecified site C55 Malignant neoplasm of uterus location: unspecified site of uterus Panic anxiety syndrome F41.0 Paroxysmal atrial flutter I48.92 COPD, mild J44.9 Lipid disorder E78.9 Other specified acquired hypothyroidism E03.8
[2024-05-18 14:15] VITALS: BP 116/80; PULSE 77; O2SAT 98; BMI 28.7
== END 2024-05-18 14:56 | disposition home or self-care (01) ==
PROVIDERS: PCP Internal Medicine; Visit Provider Internal Medicine
DX: I48.92 Unspecified atrial flutter (principal); C55 Malignant neoplasm of uterus, part unspecified; J44.9 Chronic obstructive pulmonary disease, unspecified; Z01.818 Encounter for other preprocedural examination; F41.0 Panic disorder [episodic paroxysmal anxiety]; E78.9 Disorder of lipoprotein metabolism, unspecified; E03.8 Other specified hypothyroidism
CPT/HCPCS: 99215

== ENCOUNTER 2024-07-22 08:17 | Outpatient (REF) | payer MEDICARE, MEDICAID, SELFPAY ==
--- NOTE | ~2024-07-22 | MM_ITS ---
EXAMINATION: MM SCREENING DIGITAL BREAST TOMOSYNTHESIS, BILATERAL CLINICAL INFORMATION: Screening. Asymptomatic. COMPARISON: Mammography: Comparison is made with available priors TECHNIQUE: Digital breast tomosynthesis is performed in both the craniocaudal and mediolateral oblique views along with computer-aided detection (CAD). Synthesized 2D images are generated from the tomosynthesis. FINDINGS: The breasts are heterogeneously dense, which may obscure small masses (ACR BI-RADS breast composition Category c). There are no significant masses, abnormal calcifications, or other abnormalities. MM/MM tomosynthesis screening BI IMPRESSION: No mammographic evidence of malignancy. ASSESSMENT: BI-RADS BI-RADS 1 - Negative RECOMMENDATION: Routine annual mammography screening. 1 year F/U This examination should not preclude the clinical evaluation of a suspicious palpable abnormality. This patient's information was entered into a reminder system with a target due date for their next mammogram. Electronically signed by: Ashley José DO 08/12/2024 10:15 PM EDT
== END 2024-07-22 08:18 | disposition home or self-care (01) ==
LOC: HO.MAMMO 08:17
PROVIDERS: Absent Provider Radiology Radiation Oncology; PCP Internal Medicine; Visit Provider Internal Medicine
DX: Z12.31 Encounter for screening mammogram for malignant neoplasm of breast (principal)
CPT/HCPCS: 77063; 77067

== ENCOUNTER → 2024-07-22 08:30 | Outpatient (BNV) | payer MEDICARE, MEDICAID, SELFPAY | PROVIDERS: Absent Provider Radiology Radiation Oncology; PCP Internal Medicine; Visit Provider Internal Medicine | DX: Z12.31 Encounter for screening mammogram for malignant neoplasm of breast (principal) | CPT/HCPCS: 77063; 77067 ==

== ENCOUNTER → 2024-12-30 12:49 | Outpatient (BNVA) | payer MEDICARE, MEDICAID, SELFPAY | PROVIDERS: PCP Internal Medicine; Visit Provider Internal Medicine | DX: E03.8 Other specified hypothyroidism (principal); E78.9 Disorder of lipoprotein metabolism, unspecified; I49.2 Junctional premature depolarization; C55 Malignant neoplasm of uterus, part unspecified | CPT/HCPCS: 96127; 99212 ==

== ENCOUNTER → 2024-12-30 12:49 | Outpatient (AMB) | payer MEDICARE, MEDICAID, SELFPAY | END | disposition home or self-care (01) | PROVIDERS: PCP Internal Medicine; Visit Provider Internal Medicine ==

== ENCOUNTER 2025-05-17 12:55 | Outpatient (AMB) | payer MEDICARE, MEDICAID, SELFPAY ==
[2025-05-17 12:59] VITALS: BP 124/68; PULSE 61; BMI 27.4
--- NOTE | 2025-05-17 12:59 | A.OFFVIS_ITS ---
Vital Signs 05/17/25 12:59 Height 5 ft 6 in Weight 170 lb BMI 27.4 BP 124/68 Blood Pressure Location Lt brachial Position Sitting Pulse 61 Pulse Source Monitor Intake Visit Reasons: 1 yr follow up Allergies latex (LATEX) Allergy (Unknown, Verified 12/30/24 12:51) UNKNOWN Pzfhzjm-PNM-HuC Reductase Inhibitor (GGUTFUQ-VDV-NPH REDUCTASE INHIBITOR) Allergy (Unknown, Verified 12/30/24 12:51) ? liver issue Sulfa (Sulfonamide Antibiotics) (SULFA (SULFONAMIDE ANTIBIOTICS)) Allergy (Unknown, Verified 12/30/24 12:51) yeast infections, yeast infection Adhesive bandages Allergy (Unknown, Uncoded 05/18/24 14:15) rash to site Medication List - Last Reconciled 05/17/25 by Darrius Sanches MD lorazepam 0.5 mg PO DAILY PRN 30 days metoprolol tartrate 50 mg PO BID 90 days rivaroxaban (Xarelto) 20 mg PO QPM rosuvastatin 10 mg PO DAILY 90 days Synthroid (levothyroxine) 75 mcg PO DAILY 90 days NS HPI Comments Details: Kimmy returns for follow-up regarding atrial flutter. She has been quite stable from cardiac over the last few years. Last year, she had some uterine bleeding and that led to further workup and apparently got diagnosed with cervical cancer. She has had surgery but it seems it is still progressive. [facility] Medical History Paroxysmal atrial flutter Pericardial effusion Surgical History History of parathyroid surgery Mammogram normal History of total knee replacement (TKR) History of basal cell carcinoma excision History of colonoscopy Parathyroid adenoma Family History Father Stroke Mother CHF (congestive heart failure) Stroke Brother Colon cancer Brother Brain tumor Social History Housing: Apartment Patient Tobacco Use Status: Never used Tobacco e-Cigarette/Vaping Use: Never Used service: No Current occupational status: retired Cognitive needs: No Hearing needs: Yes Vision needs: Yes Review of Systems Const Denies weakness ENT Denies dizziness Card Denies chest pain, Denies chest pain with activity, Denies syncope, Denies rapid heart rate, Denies pedal edema, Denies edema, Denies leg edema, Denies lightheadedness, Denies palpitations, Denies dyspnea, Denies dyspnea on exertion and Denies orthopnea Resp Denies cough, Denies dyspnea and Denies dyspnea on exertion GI Denies hematochezia and Denies change in stool character Musc Denies abnormal gait, Denies muscle cramps, Denies muscle weakness, Denies numbness, Denies radiating pain into limb and Denies tingling Neuro Denies abnormal gait, Denies dizziness, Denies syncope, Denies numbness, Denies tingling and Denies weakness Endo Denies palpitations Physical Exam Vital Signs: Last Vital Signs Pulse 61 05/17/25 12:59 BP 124/68 05/17/25 12:59 BMI result Body Mass Index 27.4 Const General: comfortable and no acute distress Orientation/consciousness: patient oriented x3 HEENT Other: Unremarkable Head: Yes normal to inspection Neck Neck: Yes normal visual inspection Chest Chest palpation & inspection: normal inspection of the chest Resp Auscultation: clear to auscultation bilaterally Cardio Palpation: normal PMI Heart sounds: S1 normal heart sound present, S2 normal heart sound present, no gallops, no murmurs and no rubs GI Palpation (GI): Soft to palpation Back/Spine/Pelvis Other: unremarkable Skin General skin exam: no rashes or lesions noted Neuro General: patient oriented x3 Extrem General: Yes normal to inspection Psych Mental Status: mental status grossly normal Office Procedures EKG Details: EKG with underlying sinus rhythm at 61/Min; no significant ST-T changes; [place] prolongation to 220 millisecond; [place]. [id number], Complete Assessment & Plan Assessment & Plan (1) Paroxysmal atrial flutter: Code(s): I48.92 - Unspecified atrial flutter Category: Medical Plan: She has been stable on beta-blockers and anticoagulation. In fact she has not had any atrial flutter for quite a few years. 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 Has had surgery, radiation and chemotherapy. Per nurse who came with her, patient may eventually transition to hospice although she is doing well for now. At that point, possibly stop anticoag ulation. For beta-blockers, possibly still continue to prevent any atrial arrhythmias that may lead to discomfort or hospitalization. Coding Level of Care Code Est Pt Level 4 (72500) Complex EM visit Add On G2211 Diagnoses Paroxysmal atrial flutter I48.92 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 CPT Codes EKG - CPT: 64385-[id number], Complete ([id number])
--- OUTSIDE RECORDS SUMMARY | 2025-05-17 15:04 | XMS_ITS | Clinical Summary ---
Author Organization [facility], Address [address] [place] [address] Phone Care Team Providers Care Magazine Writer Name Role Phone Melonie Lott MD Primary Care Provider [phone] Allergies Active Allergy Reactions Criticality Noted Date Comments Adhesive Tape Rash Low 07/14/2024 Statins 07/14/2024 Pt doesn't remember Sulfa Antibiotics Rash Low 07/14/2024 Medications docusate sodium (COLACE) 100 MG capsule Take 100 mg by mouth in the morning and 100 mg in the evening. Active rivaroxaban (Xarelto) 20 MG tablet Take 20 mg by mouth 1 (one) time each day with dinner Active oxyCODONE HCl 5 MG tablet Take 5 mg by mouth every 6 (six) hours if needed Active senna (SENOKOT) 8.6 MG tablet Take 1 tablet by mouth 1 (one) time each day Active acetaminophen (TYLENOL) 325 MG suppository Insert 325 mg into the rectum every 4 (four) hours if needed for mild pain Active levothyroxine sodium (TIROSINT) 75 MCG capsule Take 75 mcg by mouth 1 (one) time each day Active LORazepam (ATIVAN) 0.5 MG tablet Take 0.5 mg by mouth every 6 (six) hours if needed for anxiety Active metoprolol tartrate (LOPRESSOR) 50 MG tablet Take 50 mg by mouth in the morning and 50 mg in the evening. Active rosuvastatin (CRESTOR) 10 MG tablet Take 10 mg by mouth 1 (one) time each day Active prochlorperazine (COMPAZINE) 10 MG tablet Take 10 mg by mouth every 6 (six) hours if needed for nausea 07/07/2024 Active ondansetron (ZOFRAN) 8 MG tablet TAKE 1 TABLET BY MOUTH EVERY 8 HOURS NEEDED FOR NAUSEA/VOMIT ING 07/07/2024 Active OLANZapine (ZyPREXA) 5 MG tablet 4 (four) times a week Thu Fri Sat 07/07/2024 Active Active Problems Problem Noted Date Diagnosed Date Anemia 07/22/2024 Easy bruising 07/22/2024 Adenocarcinoma of cervix 07/14/2024 Obese 07/14/2024 Parathyroid adenoma 07/14/2024 Paroxysmal atrial flutter 07/14/2024 Pericardial effusion 07/14/2024 Basal cell cancer of skin of face 07/14/2024 Hypothyroidism 07/14/2024 Hyperlipidemia 07/14/2024 Social History Tobacco Use Types Packs/Day Years Used Date Smoking Tobacco: Former Cigarettes Smokeless Tobacco: Never Tobacco Cessation:Counseling Given: Not Answered Alcohol Use Standard Drinks/Week Comments Yes 0 (1 standard drink = 0.6 oz pur e alcohol) Comments Unknown Sex and Gender Information Value Date Recorded Sex Assigned at Not on file Legal Sex Female 2:38 PM EDT Gender Identity Not on file Sexual Orientation Not on file Last Filed Vital Signs Vital Sign Reading Time Taken Comments Blood Pressure 122/74 07/22/2024 9:58 AM EDT Pulse 59 07/22/2024 9:58 AM EDT Temperature 36.2 C (97.2 F) 07/22/2024 9:58 AM EDT Respiratory Rate 16 07/22/2024 9:58 AM EDT Oxygen Saturation 98% 07/22/2024 9:58 AM EDT Inhaled Oxygen Concentration - - Weight 81.6 kg (180 lb) 07/22/2024 9:58 AM EDT Height 165.1 cm (5' 5 ) 07/22/2024 9:58 AM EDT Body Mass Index 29.95 07/22/2024 9:58 AM EDT Plan of Treatment Health Maintenance Due Date Last Done Comments Pneumococcal Vaccine: 50+ Ye ars (1 of 2 - PCV) 1959 Influenza Vaccine (Season Ended) 2025 Hepatitis B Vaccine Aged Out No longe r eligible based on patient's age to complete this topic Insurance Medicare Medicaid [place] Care Teams Magazine Writer Relationship Specialty Start Date End Date Melonie Lott MD [address] [place], [place] [phone] PCP - General Internal Medicine 07/20/24
== END 2025-05-17 13:24 | disposition home or self-care (01) ==
LOC: HO.HCS 12:56
PROVIDERS: PCP Internal Medicine; Visit Provider Internal Medicine
DX: I48.92 Unspecified atrial flutter (principal); D06.0 Carcinoma in situ of endocervix
CPT/HCPCS: 93010; 99214; G2211

== ENCOUNTER → 2025-05-17 12:55 | Outpatient (BNVA) | payer MEDICARE, MEDICAID, SELFPAY | PROVIDERS: PCP Internal Medicine; Visit Provider Internal Medicine | DX: I44.0 Atrioventricular block, first degree (principal); I48.92 Unspecified atrial flutter; D06.0 Carcinoma in situ of endocervix | CPT/HCPCS: 93005; 99212 ==

== ENCOUNTER 2025-07-04 13:41 | Outpatient (AMB) | payer MEDICARE, MEDICAID, SELFPAY ==
[2025-07-04 13:45] VITALS: BP 116/62; PULSE 78; O2SAT 98; BMI 26.6
--- NOTE | 2025-07-04 13:45 | A.OFFPC_ITS ---
Vital Signs 07/04/25 13:45 Height 5 ft 6 in Weight 165 lb BMI 26.6 BP 116/62 Blood Pressure Location Lt brachial Position Sitting Pulse 78 Pulse Source Pulse Oximeter Pulse Oximetry (%) 98 Oxygen Delivery Method Room Air Intake Visit Reasons: Cancer diagnosis f/u Allergies latex (LATEX) Allergy (Unknown, Verified 07/04/25 13:47) UNKNOWN Nsbvtjf-FUK-DrH Reductase Inhibitor (SUDCJZA-MFP-MXH REDUCTASE INHIBITOR) Allergy (Unknown, Verified 07/04/25 13:47) ? liver issue Sulfa (Sulfonamide Antibiotics) (SULFA (SULFONAMIDE ANTIBIOTICS)) Allergy (Unknown, Verified 07/04/25 13:47) yeast infections, yeast infection Adhesive bandages Allergy (Unknown, Uncoded 05/18/24 14:15) rash to site Medication List - Last Reconciled 07/04/25 by Melonie Lott MD lorazepam 0.5 mg PO DAILY PRN 30 days metoprolol tartrate 50 mg PO BID 90 days rivaroxaban (Xarelto) 20 mg PO QPM Synthroid (levothyroxine) 75 mcg PO DAILY 90 days NS Tobacco use date assessed: 12/30/24 Fall risk assessment: No Falls in past year Last assessed Fall Risk: 07/04/25 Dental Screening Dental Screen Date: 12/30/24 HPI Cancer diagnosis f/u HPI Details Chief Complaint The patient presents for a regular follow-up to monitor hypothyroidism. History of Present Illness The patient is an 84-year-old female presenting for a regular follow-up on hypothyroidism. Hypothyroidism: - The patient is established on levothyr oxine to manage hypothyroidism. - No recent labs have been performed for thyroid function assessment. Medical History: - Adenocarcinoma HPV-independent gastric type - Chronic anemia - History of pericardial effusion - Paroxysmal atrial flutter - Chronic Obstructive Pulmonary Disease (COPD) - Mild osteoarthritis of multiple joints - Angelo-tachy syndrome - Lipid disorder - Hypothyroidism Surgical History: - Total laparoscopic hysterectomy with b ilateral oophorectomy and centennial and right pelvic lymph node dissection in May of last year. Secondary to endocervical cancer Medications: - Metoprolol for blood pressure control - Xarelto for anticoagulation - Levothyroxine for hypothyroidism - Atorvastatin and rosuvastatin were rec ently discontinued Diagnostic Results: - Labs from January last year showed hemog lobin at 13.0, kidney functions were intact. 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 - Follow up with palliative care for man agement of adenocarcinoma. Patient has decided not to pursue chemotherapy again - Clean ear wax as instructed, use Debro x at night if necessary. Patient will be seeing ENT, we tried to flush the ear but left ear still have some wax Do not wear hearing aid if using Debrox - Appointments for lab work should inclu de thyroid function tests. As patient is planning to do it through Oncology Review of Systems - General: No fever no chills - Neurological: No headaches no dizziness - Ear nose throat: No sore throat - Cardiovascular: No syncope, no chest pain, no palpitations - Gastrointestinal: No nausea vomiting or diarrhea - Endocrine: No polyuria polydipsia no heat intolerance - Genitourinary: No dysuria , no blood in urine Physical Exam General: No acute distress HEENT: Earwax buildup noted both ears after irrigation right ear is clean left still has some wax Neck: Supple Respiratory system: Able to talk in full sentences, no audible wheeze Cardiovascular: Heart is regular in rate and rhythm Gastrointestinal: No pain Extremities: No new findings TRUCK MANAGER: Alert awake oriented x3 motor sensory intact Skin: Normal turgor PFSH Medical History Paroxysmal atrial flutter Pericardial effusion Surgical History History of parathyroid surgery Mammogram normal History of total knee replacement (TKR) History of basal cell carcinoma excision History of colonoscopy Parathyroid adenoma Family History Father Stroke Mother CHF (congestive heart failure) Stroke Brother Colon cancer Brother Brain tumor Social History Housing: Apartment Patient Tobacco Use Status: Never used Tobacco e-Cigarette/Vaping Use: Never Used service: No Current occupational status: retired Cognitive needs: No Hearing needs: Yes Vision needs: Yes Questionnaire Thrive Questionnaire Date Thrive assessed: 12/30/24 I am a: Patient What is your living situation today?: I have a steady place to live Within the past 12 months, did the food you bought not last and you didn't have the money to get more?: Never true Within the past 12 months, did you worry whether your food would run out before you got money to buy more?: Never true Do you have trouble paying for medicines?: No Do you have trouble getting transportation to medical appointments?: No Do you have trouble paying your heating and electricity bill?: No Do you have trouble taking care of your child, family member or friend?: No Do you have trouble with day-to-day activities such as bathing, preparing meals, shopping, managing finances, etc.?: No Are you currently unemployed and looking for a job?: No Are you interested in more education?: No Please select the resources that you would like help with: None Currently or been in a relationship where the following occur: No concerns reported THRIVE Score: 0 SUSAN-7 AMB Questionnaire SUSAN-7 Date SUSAN - 7 assessed: 12/30/24 Source: Developed by Drs. Gopi Castillo, Susana Calero, Rigoberto Jones and colleagues, with an educational gini from [employer]. Physical exam (Primary Care) Vital Signs: Last Vital Signs Pulse 78 07/04/25 13:45 BP 116/62 07/04/25 13:45 Pulse Ox 98 07/04/25 13:45 Oxygen Delivery Method Room Air 07/04/25 13:45 BMI result Body Mass Index 26.6 Tobacco/Smoking Status: Tobacco use Status Tobacco use date assessed 12/30/24 07/04/25 13:49 Patient Tobacco Use Status Never used Tobacco 07/04/25 13:49 e-Cigarette/Vaping Use Never Used 07/04/25 13:49 Thrive Assessment: Date of Thrive Assessment Date Thrive assessed 12/30/24 07/04/25 13:49 Currently or been in a relationship where the following occur: No concerns reported Office Procedures Cerumen Removal From which ear canal was the cerumen removed: bilateral Removal: irrigation Notes: patient tolerated procedure well, no complications and ear canal clear 39501-[id number] Irrigation/Lavage Coding Level of Care Code Est Pt Level 4 (43129) Complex EM visit Add On G2211 Diagnoses Other specified acquired hypothyroidism E03.8 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 Excessive cerumen in both ear canals H61.23 Lipid disorder E78.9 Angelo-tachy syndrome I49.5 COPD, mild J44.9 Paroxysmal atrial flutter I48.92 CPT Codes Office Procedure - CPT: 86482-Iab Irrigation/Lavage ([id number]) Assessment & Plan Assessment & Plan (1) Other specified acquired hypothyroidism: Code(s): E03.8 - Other specified hypothyroidism Category: Medical (2) Adenocarcinoma in situ of endocervix: Code(s): D06.0 - Carcinoma in situ of endocervix Category: Medical (3) Excessive cerumen in both ear canals: Code(s): H61.23 - Impacted cerumen, bilateral Category: Medical (4) Lipid disorder: Code(s): E78.9 - Disorder of lipoprotein metabolism, unspecified Category: Medical (5) Angelo-tachy syndrome: Code(s): I49.5 - Sick sinus syndrome Category: Medical (6) COPD, mild: Code(s): J44.9 - Chronic obstructive pulmonary disease, unspecified Category: Medical (7) Paroxysmal atrial flutter: Code(s): I48.92 - Unspecified atrial flutter Category: Medical Plan Chief Complaint The patient presents for a regular follow-up to monitor hypothyroidism. History of Present Illness The patient is an 84-year-old female presenting for a regular follow-up on hypothyroidism. Hypothyroidism: - The patient is established on levothyroxine to manage hypothyroidism. - No recent labs have been performed for thyroid function assessment. Medical History: - Adenocarcinoma HPV-independent gastric type - Chronic anemia - History of pericardial effusion - Paroxysmal atrial flutter - Chronic Obstructive Pulmonary Disease (COPD) - Mild osteoarthritis of multiple joints - Angelo-tachy syndrome - Lipid disorder - Hypothyroidism Surgical History: - Total laparoscopic hysterectomy with bilateral oophorectomy and centennial and right pelvic lymph node dissection in May of last year. Secondary to endocervical cancer Medications: - Metoprolol for blood pressure control - Xarelto for anticoagulation - Levothyroxine for hypothyroidism - Atorvastatin and rosuvastatin were recently discontinued Diagnostic Results: - Labs from January last year showed hemoglobin at 13.0, kidney functions were intact. 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 - Follow up with palliative care for management of adenocarcinoma. Patient has decided not to pursue chemotherapy again - Clean ear wax as instructed, use Debrox at night if necessary. Patient will be seeing ENT, we tried to flush the ear but left ear still have some wax Do not wear hearing aid if using Debrox - Appointments for lab work should include thyroid function tests. As patient is planning to do it through Oncology
--- OUTSIDE RECORDS SUMMARY | 2025-07-04 14:39 | XMS_ITS | Clinical Summary ---
Author Organization [facility], Address [address] [place] [address] Phone Care Team Providers Care Ion Implant Machine Operator Name Role Phone Melonie Lott MD Primary Care Provider [phone] Allergies Active Allergy Reactions Criticality Noted Date [...] of 2 - PCV) 1959 Influenza Vaccine (#1) 2025 Hepatitis B Vaccine Aged Out No longe r eligible based on patient's age to complete this topic Insurance Medicare Medicaid [place] Care Teams Ion Implant Machine Operator Relationship Specialty Start Date End Date Melonie Lott MD [address] [place], [place] [id number] PCP - General Internal Medicine 07/20/24
--- OUTSIDE RECORDS SUMMARY | 2025-07-04 14:39 | XMS_ITS | Patient Health Record ---
Author Organization [facility] Address [address] [place] [address] Support Name Relationship Address Phone SR [place] WYATT Guarantor Unknown Reason For Referral No Information Plan Of Treatment No Information
--- OUTSIDE RECORDS SUMMARY | 2025-07-04 14:39 | XMS_ITS | Patient Health Record ---
Author Organization [facility] Address [address] [place] [address] Care Team Providers Care Parking Lot Spotter Name Role Phone Juany Roe Primary Care Provide Jose Noel Unavailable [phone] Allergies Allergen (clinical drug ingredient) Drug/Non Drug Allergy documented on EMR Reaction Allergy Type Onset Date Status sulfa Unknown Drug Allergy Active Adhesive Tape Unknown Drug Allergy Act agnes Reason For Referral No Information Medications Medication SIG (Take, Route, Frequency, Duration) Notes Start Date End Date Status Advil 200 MG 1 capsule as needed Orally every 6 hrs 08/25/2013 Active Viactiv 500-500-40 MG-UNT-MCG 1 tablet with a meal Orally Once a day; Duration: 30 day(s) Active Crestor 20 MG 1 tablet Orally Once a day; Duration: 30 day(s) Active Metoprolol & Diet Manage Prod 50 MG as directed Orally Active Synthroid 25 MCG 1 tablet on an empty stomach in the morning Orally Once a day; Duration: 30 day(s) Active Problems Problem Type SNOMED Code ICD Code Onset Dates Problem Status W/U Status Risk Notes Problem Verruca plantaris (46376430) Verruca Plantaris (078.19) Active confirmed Problem ASO (440.20) Active confirmed Problem Disorder of joint of ankle and/or foot (417820980) Arthritis - Degenerative (719.97) Active confirmed Problem Pain in limb (73492762) Pain in Limb (729.5) Active confirmed Problem Hammer toe (837554608) Hammer toe (735.4) Active confirmed Plan Of Treatment Pending Test Test Name Order Date [id number] Destruction, 1-14 08/25/201305928-Uphn Destruction, 1-09/15/2013 Insurance Providers Payer Name Payer Address Payer Phone Subscriber Number Group Number Insured Name Patient Relationship to Insured Coverage Start Date Coverage End Date Medicare National Govt Sv[employer] [address] [place] [address] [id number] Kimmy Lynch Sr Self - patient is the insured JULIA Campa [address] [place] [address] [phone] [id number] Kimmy Lynch Sr Self - patient is the insured Medical (General) History Medical History History ICD Code chicken pox joint implants/screws Surgical History Surgery Date(Month/Year) left knee replacement
== END 2025-07-04 14:39 | disposition home or self-care (01) ==
LOC: HO.HMCC 13:42
PROVIDERS: PCP Internal Medicine; Visit Provider Internal Medicine
DX: E03.8 Other specified hypothyroidism (principal); I49.5 Sick sinus syndrome; J44.9 Chronic obstructive pulmonary disease, unspecified; I48.92 Unspecified atrial flutter; D06.0 Carcinoma in situ of endocervix; H61.23 Impacted cerumen, bilateral; E78.9 Disorder of lipoprotein metabolism, unspecified

== ENCOUNTER → 2025-07-04 13:41 | Outpatient (BNVA) | payer MEDICARE, MEDICAID, SELFPAY | PROVIDERS: PCP Internal Medicine; Visit Provider Internal Medicine | DX: E03.8 Other specified hypothyroidism (principal); D06.0 Carcinoma in situ of endocervix; H61.23 Impacted cerumen, bilateral; E78.9 Disorder of lipoprotein metabolism, unspecified; I49.5 Sick sinus syndrome; I48.92 Unspecified atrial flutter; J44.9 Chronic obstructive pulmonary disease, unspecified | CPT/HCPCS: 69209; 99212 ==

== ENCOUNTER 2025-08-10 06:32 | Outpatient (AMB) | payer MEDICARE, MEDICAID, SELFPAY ==
--- OUTSIDE RECORDS SUMMARY | 2025-08-10 06:35 | XMS_ITS | Clinical Summary ---
Author Organization [facility], Address [address] [place] [address] Phone Care Team Providers Care Leg Assembler Name Role Phone Melonie Lott MD Primary Care Provider [phone] Allergies Active Allergy Reactions Criticality Noted Date [...] topic Insurance Medicare Medicaid [place] Care Teams Leg Assembler Relationship Specialty Start Date End Date Melonie Lott MD [address] [place], [place] [id number] PCP - General Internal Medicine 07/20/24
--- OUTSIDE RECORDS SUMMARY | 2025-08-10 06:36 | XMS_ITS | Clinical Summary ---
Author Organization [facility] Address [address] [place] [address] Care Team Providers Care Children'S Literature Professor Name Role Phone Melonie Lott MD Primary Care Provider [phone] Allergies Active Allergy Reactions Criticality Noted Date Comments Statins Other (See Comments) Low 09/24/2009 Pt doesn't remember Sulfa Antibiotics Unknown/Patient and Family Unable to Define Medium 07/28/2025 Medications Levothyroxine Sodium 75 MCG Cap Take 75 mcg by mouth. Active docusate sodium (COLACE) 100 MG capsule Take 100 mg by mouth. Active senna 8.6 MG Tab tablet Take 1 tablet by mouth. Active metoPROLOL TARTRATE (LOPRESSOR) 50 MG tablet Take 50 mg by mouth 2 times a day. 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 Squamous cell carcinoma of upper extremity 02/28 Squamous cell carcinoma of skin 02/28/2025 Easy bruising 07/22/2024 Adenocarcinoma of cervix 07/14/2024 Pericardial effusion 07/14/2024 Paroxysmal atrial flutter 07/14/2024 Parathyroid adenoma 07/14/2024 Melanocytic nevus of lip 03/21/2024 Hemangioma of skin and subcutaneous tissue 11/02 Scar conditions and fibrosis of skin 03/20/2023 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 Disorder of skin 03/20/2023 Basal cell carcinoma (BCC) of skin of lip 2021 Asteatosis cutis 10/21/2021 Inflamed seborrheic keratosis 08/25/2019 Other melanin hyperpigmentation 08/25/2019 Melanocytic nevus of right lower extremity 08/25 Hearing loss 08/25/2019 Other diseases of capillaries 08/25/2019 Atrial fibrillation 08/25/2019 Asthma 08/25/2019 Neoplasm of uncertain behavior of skin 9 Personal history of other drug therapy 8 Other specified health status 12/19/2015 Encounters Date Type Department Care Team Description 07/28/2025 9:30 AM EDT Office Visit [facility] [address], [place] [address] Romain Broderick MD Sensorineural hearing loss, bilateral (Primary Dx); Bilateral impacted cerumen; Impacted cerumen, bilateral [H61.23] 06/19/2025 Transcribe Orders [facility] Melonie Lott MD Impacted cerumen, bilateral (Primary Dx); Hearing loss, unspecified hearing loss type, unspecified laterality from Last 3 Months Social History Tobacco Use Types Packs/Day Years Used Date Smoking Tobacco: Never Passive Smoke Exposure: Never Smokeless Tobacco: Never Alcohol Use Standard Drinks/Week Comments Not Currently 0 (1 standard drink = 0.6 oz pur e alcohol) Comments Unknown Sex and Gender Information Value Date Recorded Sex Assigned at Female 07/04/2025 2:28 PM EDT Legal Sex Female 6:14 PM EST Gender Identity Female 07/04/2025 2:28 PM EDT Sexual Orientation Heterosexual (straight) 07/04 2:28 PM EDT Last Filed Vital Signs Vital Sign Reading Time Taken Comments Blood Pressure - - Pulse - - Temperature - - Respiratory Rate - - Oxygen Saturation - - Inhaled Oxygen Concentration - - Weight 77.1 kg (170 lb) 07/28/2025 9:27 AM EDT Height 170.2 cm (5' 7 ) 07/28/2025 9:27 AM EDT Body Mass Index 26.63 07/28/2025 9:27 AM EDT Plan of Treatment Upcoming Encounters Date Type Department Care Team (Late st Contact Info) Description 10/31/2025 9:15 AM EST Office Visit [facility] [place] [address] [place] [address] Romain Broderick MD [address] [facility] [place], [place] [address] Health Maintenance Due Date Last Done Comments Advance Care Planning 1940 COVID-19 Vaccine (#1) 1944 DTaP/Tdap/Td Vaccines (1 - Tdap) 1958 Pneumococcal Vaccines 50+ (1 of 2 - PCV) 1958 Zoster (Shingles) Vaccine (1 of 2) 1958 DXA Bone Density (Females,Ag es 65 and older) 2004 RSV Vaccine 60 years and old er and Patients (1 - 1-dose 75+ series) 2014 Influenza Vaccine 06/23/2025 Hepatitis B Vaccines Aged Out No long er eligible based on patient's age to complete this topic Insurance MEDICARE PART A & B Care Teams Children'S Literature Professor Relationship Specialty Start Date End Date Melonie Lott MD [address] [place] [address] PCP - General Internal Medicine 07/28/25
--- OUTSIDE RECORDS SUMMARY | 2025-08-10 06:36 | XMS_ITS | Patient Health Record ---
Author Organization [facility] Address [address] [place] [address] Care Team Providers Care Enamel Finisher Name Role Phone Juany Roe Primary Care Provide Jose Noel Unavailable [phone] Allergies Allergen (clinical drug ingredient) Drug/Non Drug Allergy documented on EMR Reaction Allergy Type Onset Date Status sulfa Unknown Drug Allergy Active Adhesive Tape Unknown Drug Allergy Act agnse Reason For Referral No Information Medications Medication [...] W/U Status Risk Notes Problem Verruca plantaris (10541227) Verruca Plantaris (078.19) Active confirmed Problem ASO (440.20) Active confirmed Problem Disorder of joint of ankle and/or foot (811712085) Arthritis - Degenerative (719.97) Active confirmed Problem Pain in limb (29305632) Pain in Limb (729.5) Active confirmed Problem Hammer toe (169143229) Hammer toe (735.4) Active confirmed Plan Of Treatment Pending Test Test Name Order Date [id number] Destruction, 1-14 08/25/201375214-Dxuk Destruction, 1-09/15/2013 Insurance Providers Payer Name Payer Address Payer Phone Subscriber Number Group Number Insured Name Patient Relationship to Insured Coverage Start Date Coverage End Date Medicare National Govt Svcs Inc [address] [place] [address] [id number] Kimmy Lynch Sr Self - patient is the insured JULIA Campa [address] [place] [address] [phone] [id number] Kimmy Lynch Sr Self - patient is the insured Medical (General) History Medical History History ICD Code chicken pox joint implants/screws Surgical History Surgery Date(Month/Year) left knee replacement
--- OUTSIDE RECORDS SUMMARY | 2025-08-10 06:36 | XMS_ITS | Patient Health Record ---
Author Organization [facility] Address [address] [place] [address] Support Name Relationship Address Phone [place] WYATT Guarantor Unknown [phone] Reason For Referral No Information Plan Of Treatment No Information
--- NOTE | 2025-08-10 10:27 | A.OFFPC_ITS ---
Intake Visit Reasons: med management/increase anxiety Allergies latex (LATEX) Allergy (Unknown, Verified 07/04/25 13:47) UNKNOWN Mwaqwwz-UOW-GfS Reductase Inhibitor (EBEHOVA-XTX-UVD REDUCTASE INHIBITOR) Allergy (Unknown, Verified 07/04/25 13:47) ? liver issue Sulfa (Sulfonamide Antibiotics) (SULFA (SULFONAMIDE ANTIBIOTICS)) Allergy (Unknown, Verified 07/04/25 13:47) yeast infections, yeast infection Adhesive bandages Allergy (Unknown, Uncoded 05/18/24 14:15) rash to site Medication List - Last Reconciled 08/10/25 by Melonie Lott MD lorazepam 0.5 mg PO DAILY PRN 30 days metoprolol tartrate 50 mg PO BID 90 days rivaroxaban (Xarelto) 20 mg PO QPM Synthroid (levothyroxine) 75 mcg PO DAILY 90 days NS Tobacco use date assessed: 12/30/24 Dental Screening Dental Screen Date: 12/30/24 HPI med management/increase anxiety HPI Details History of Present Illness The patient is an 84-year-old female presenting with anxiety related to 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 Anxiety: - The patient has been experiencing incr eased anxiety associated with her health condition. - Symptoms have worsened over the past t wo weeks. - Anxiety is exacerbated by gastrointest inal symptoms, including bouts of constipation and diarrhea. - She has previously been prescribed damaris azepam (Ativan) for management. Adenocarcinoma of the endocervical area: - The patient chose not to pursue active treatment for the cancer. - Recent CAT scan showed seven lesions, with two palpable in the abdomen. Social History: - Transitioning from palliative care to hospice services Problem List - Anxiety - Adenocarcinoma of the endocervical are a - Gastrointestinal symptoms Patient Instructions - Continue taking lorazepam (Ativan) rebeka ly, with an additional dose on days with heightened gastrointestinal symptoms. until transition to hospice services within the next two weeks. [facility] Medical History Paroxysmal atrial flutter Pericardial effusion Surgical History History of parathyroid surgery Mammogram normal History of total knee replacement (TKR) History of basal cell carcinoma excision History of colonoscopy Parathyroid adenoma Family History Father Stroke Mother CHF (congestive heart failure) Stroke Brother Colon cancer Brother Brain tumor Social History Housing: Apartment Patient Tobacco Use Status: Never used Tobacco e-Cigarette/Vaping Use: Never Used service: No Current occupational status: retired Cognitive needs: No Hearing needs: Yes Vision needs: Yes Questionnaire Thrive Questionnaire Date Thrive assessed: 12/30/24 I am a: Patient What is your living situation today?: I have a steady place to live Within the past 12 months, did the food you bought not last and you didn't have the money to get more?: Never true Within the past 12 months, did you worry whether your food would run out before you got money to buy more?: Never true Do you have trouble paying for medicines?: No Do you have trouble getting transportation to medical appointments?: No Do you have trouble paying your heating and electricity bill?: No Do you have trouble taking care of your child, family member or friend?: No Do you have trouble with day-to-day activities such as bathing, preparing meals, shopping, managing finances, etc.?: No Are you currently unemployed and looking for a job?: No Are you interested in more education?: No Please select the resources that you would like help with: None Currently or been in a relationship where the following occur: No concerns reported THRIVE Score: 0 SUSAN-7 AMB Questionnaire SUSAN-7 Date SUSAN - 7 assessed: 12/30/24 Source: Developed by Drs. Gopi Castillo, Susana Calero, Rigoberto Jones and colleagues, with an educational gini from [email or web address]. Review of Systems Const All systems reviewed & are unremarkable except as noted in HPI and below Physical exam (Primary Care) Tobacco/Smoking Status: Tobacco use Status Tobacco use date assessed 12/30/24 07/04/25 13:49 Patient Tobacco Use Status Never used Tobacco 07/04/25 13:49 e-Cigarette/Vaping Use Never Used 07/04/25 13:49 Thrive Assessment: Date of Thrive Assessment Date Thrive assessed 12/30/24 07/04/25 13:49 Currently or been in a relationship where the following occur: No concerns reported Telehealth Telehealth Telehealth Platform: Advanced Patient Care Location of provider rendering services: practice address Location of patient: address on file Patient Identification confirmed using: Name, : Yes Telehealth method: video Patient verbally consented to treatment: Yes Patient verbally consented to billing insurance company: Yes Patient informed of any privacy concerns related to visit: Yes Minutes spent on Phone/Video with Pt.: 13 Coding Level of Care Code Tele Est Pt Level 3 (12275) Diagnoses Palliative care patient Z51.5 Endocervical adenocarcinoma C53.0 Panic anxiety syndrome F41.0 Assessment & Plan Assessment & Plan (1) Palliative care patient: Code(s): Z51.5 - Encounter for palliative care Category: Medical (2) Endocervical adenocarcinoma: Code(s): C53.0 - Malignant neoplasm of endocervix Category: Medical (3) Panic anxiety syndrome: Code(s): F41.0 - Panic disorder [episodic paroxysmal anxiety] Category: Medical Plan History of Present Illness The patient is an 84-year-old female presenting with anxiety related to 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 Anxiety: - The patient has been experiencing increased anxiety associated with her health condition. - Symptoms have worsened over the past two weeks. - Anxiety is exacerbated by gastrointestinal symptoms, including bouts of constipation and diarrhea. - She has previously been prescribed lorazepam (Ativan) for management. Adenocarcinoma of the endocervical area: - The patient chose not to pursue active treatment for the cancer. - Recent CAT scan showed seven lesions, with two palpable in the abdomen. Social History: - Transitioning from palliative care to hospice services Problem List - Anxiety - Adenocarcinoma of the endocervical area - Gastrointestinal symptoms Patient Instructions - Continue taking lorazepam (Ativan) daily, with an additional dose on days with heightened gastrointestinal symptoms. until transition to hospice services within the next two weeks. Medications: Changed From lorazepam 0.5 mg PO DAILY 30 days PRN 30 tabs 0RF anxiety To lorazepam 0.5 mg PO BID PRN 60 tabs 0RF anxiety 30 days
== END 2025-08-10 11:09 | disposition home or self-care (01) ==
LOC: HO.HMCC 06:33
PROVIDERS: PCP Internal Medicine; Visit Provider Internal Medicine
DX: C53.0 Malignant neoplasm of endocervix (principal); Z51.5 Encounter for palliative care; F41.0 Panic disorder [episodic paroxysmal anxiety]